=== PATIENT | female | born 1955 | race Caucasian/White ===

== ENCOUNTER → 2020-08-25 13:40 | Outpatient (BNVA) | payer MEDICARE, MEDICAID, SELFPAY | PROVIDERS: Family Provider Nurse Practitioner Family; PCP Nurse Practitioner Family; Referring Provider Family Medicine; Visit Provider Dermatology | DX: L98.9 Disorder of the skin and subcutaneous tissue, unspecified (principal) | CPT/HCPCS: 87220 ==

== ENCOUNTER 2021-02-24 11:02 | Outpatient (CLI) | payer MEDICARE, MEDICAID, SELFPAY ==
--- NOTE | 2021-02-24 11:11 | MM_ITS ---
WS: [id number] Bilateral screening digital mammogram, 02/24/2021 Clinical Data: SCREENING Comparison: None. Findings: There is asymmetric tissue in the upper-outer quadrant of the right breast. The left breast is normal . The breast parenchymal pattern shows fibroglandular tissue. No spiculated masses or clustered calci fications are seen. There are no secondary signs of carcinoma. There are numerous lymph nodes in both axilla. MM/[place] [id number] Impression: 1. Asymmetric tissue in the upper outer quadrant of the right breast and recomm end right breast ultrasound. 2. Negative left breast BIRADS: 0-Incomplete: Need additional imaging evaluation FOLLOW UP: See Report The CAD program checker was used.
== END 2021-02-24 11:03 | disposition home or self-care (01) ==
LOC: RADSHAW 11:09
PROVIDERS: Family Provider Nurse Practitioner Family; PCP Nurse Practitioner Family; Visit Provider Nurse Practitioner Family
DX: Z12.31 Encounter for screening mammogram for malignant neoplasm of breast (principal)
CPT/HCPCS: 77067

== ENCOUNTER 2021-04-09 08:33 | Outpatient (CLI) | payer MEDICARE, MEDICAID, SELFPAY ==
--- NOTE | 2021-04-09 08:45 | MM_ITS ---
WS: [id number] ADDITIONAL VIEWS RIGHT MAMMOGRAM RIGHT BREAST ULTRASOUND HISTORY: RIGHT BREAST MASS COMPARISON: 02/24/2021 RIGHT MAMMOGRAM: Spot compression views and true ML. Spiculated mass present in the upper-outer quadrant posteriorly of the RIGHT breast persists measurin g 11 x 13 mm. No additional suspicious masses. There are a few benign calcifications. Benign lymph no steffany. RIGHT BREAST ULTRASOUND 2-D and color Doppler imaging submitted. Ultrasound directed to the upper outer quadrant of the RIGHT breast. At 10:00, 6 cm from the nipple i s a hypoechoic spiculated mass with shadowing. Mass measures 0.6 x 1.0 x 0.9 cm. Mild peripheral incr eased vascularity. Lymph nodes in the RIGHT axilla are negative. No abnormality noted in the RIGHT br east at 2:00. MM/[place] [id number] IMPRESSION: BI-RADS: 5-Highly Suggestive of Malignancy FOLLOW UP: Biopsy Recommended Notified SAMANTHA Bernard-Geremias at 04/09/2021 9:57 AM. Nurse practitioner is not available. Report discussed with Lisa for follow-up.
== END 2021-04-09 08:34 | disposition home or self-care (01) ==
LOC: RADSHAW 08:36
PROVIDERS: PCP Nurse Practitioner Family; Visit Provider Nurse Practitioner Family
DX: R92.8 Other abnormal and inconclusive findings on diagnostic imaging of breast (principal); N63.11 Unspecified lump in the right breast, upper outer quadrant
CPT/HCPCS: 76642; 77065

== ENCOUNTER 2021-04-20 08:12 | Outpatient (CLI) | payer MEDICARE, MEDICAID, SELFPAY ==
--- NOTE | 2021-04-20 08:24 | US_ITS ---
WS: [id number] ULTRASOUND-GUIDED RIGHT BREAST BIOPSY CLINICAL INFORMATION: LUMP IN R BREAST COMPARISON: None. FINDINGS: The procedure including risks, benefits, and complications were discussed with the patient who agreed to proceed. Using sterile technique patient was prepped and draped in the usual sterile fashion. Aft er 1% lidocaine utilizing real-time ultrasound guidance 5 14-gauge cores were obtained of the right b reast lesion at the 10 o'clock position. Subsequently a titanium clip was placed in the biopsy cavity . No immediate complications. PATHOLOGY DEMONSTRATES A. Breast, right, 10 o'clock , biopsy: -Invasive ductal carcinoma. -Calhoun Talavera grade 2 (score 6). -Ancillary studies have been performed. US/[place] [id number] IMPRESSION: 1. Uncomplicated ultrasound-guided right breast biopsy. 2. The pathology demonstrates invasive ductal carcinoma. 3. Breast cancer prognostic profile pending. BI-RADS: 6-Known Biopsy-Proven Malignancy FOLLOW UP: Surgical Biopsy Recommended RECOMMEND BREAST SURGERY CONSULTATION FOR SURGICAL RESECTION.
[2021-04-27 09:36] LABS: Miscellaneous Test See Scanned Lab Rpt
== END 2021-04-20 08:13 | disposition home or self-care (01) ==
LOC: RAD 08:15
PROVIDERS: PCP Nurse Practitioner Family; Visit Provider Registered Nurse
DX: N63.11 Unspecified lump in the right breast, upper outer quadrant (principal); C50.411 Malignant neoplasm of upper-outer quadrant of right female breast
CPT/HCPCS: 19083; 88305; 88361; 88367; 88374

== ENCOUNTER 2021-07-12 07:42 | Outpatient (CLI) | payer MEDICARE, MEDICAID, SELFPAY ==
--- NOTE | 2021-07-12 12:53 | ONC CON_ITS ---
Dr. Cruz New Patient Note Patient: Karlene Gay Unit #: [id number]: 1955 Dicatated By: Jerel Cruz M.D.Date of Visit: Jul 12, 2021 Onc MED New Patient/Consult Referring Physician: Dr. SHANELL DENNIS M.D. History of Present Illness: Ms. Karlene Gay, is a 65-year-old female who underwent routine mammogram in February 2021 which showed right upper breast abnormality,, confirmed with ultrasound and on April 20, 2021, she underwent ultrasound-guided right breast biopsy which confirmed invasive ductal carcinoma, at that point, patient decided to go to [facility] for further management where she underwent right partial mastectomy with sentinel lymph node biopsy on June 24, 2021 which confirmed invasive ductal carcinoma size about 10 mm, grade 2/3 with clear surgical margins and 1 out of 2 sentinel lymph nodes shows metastatic disease, T1b, N1a, MX. ER [place] positive HER-2/darvin negative. Patient tolerated procedure well and now healing well. She has history of heavy smoking, 1 to 2 pack/day since age 41, history of alcohol abuse but now socially. She also has history of diabetes, hypertension and coronary artery disease Past Medical History: Ms. Gay's medical history consists of history of bcc of face, hypertension, hypothyroidism, type II diabetes, and myocardial infarction in 2002. Past Surgical History: Ms. Gay's surgical/procedural history consists of breast biopsy, excision of basal cell skin cancer from face, hysterectomy, right knee surgery, covid vaccine #1 in 2020, and covid vaccine #2 in 2020. Medications: CeleXA 1 Tablet (of 20 mg) Oral daily, Cholecalciferol 1 Tablet (of 1.25 mg ) Capsule Oral daily on M,F, Clopidogrel Bisulfate 1 Tablet (of 75 mg) Oral daily, Furosemide 1 Tablet (of 40 mg) Oral daily, Ipratropium-Albuterol 1 Vial(s) (of 0.5-2.5 (3) mg/3mL) Solution Inhalation q 4 to 6 hours PRN, Isosorbide Mononitrate ER 1 Tablet (of 30 mg) Tablet SR 24 HR Oral daily, Januvia 1 Tablet (of 100 mg) Oral daily, Levo-T 1 Tablet (of 150 mcg) Oral daily, Losartan Potassium 1 Tablet (of 50 mg) Oral b.i.d., Metoprolol Tartrate 1 Tablet (of 100 mg) Oral t.i.d., Potassium Chloride ER 2 Capsule (of 10 meq) Capsule, controlled release Oral daily, tiZANidine HCl 1 Tablet (of 4 mg) Oral t.i.d., traZODone HCl 1 Tablet (of 50 mg) Oral daily, Voltaren Gel (jelly) Topical PRN Allergies: Codeine Sulfate Social History: Ms. Gay is . Ms. Gay no longer smokes but had smoked 2.0 packs/day for 20 years. She is an active drinker. Drinks wine or beer occasionally. Family History: Ms. Gay's mother at age 72. Ms. Gay's father at age 45. Ms. Gay has 2 sisters: 2 alive. She has 1 son who is : myocardial infarction. Review Of Symptoms: Review of Systems is not available for this patient. Vital Signs: Performed on Jul 12, 2021 09:44: 5, 8, 46.86 (HIGH), 1.96 sq.m, 59 in, 99 %, 58 /min (LOW), 18 /min, 130/78 mm(hg), 97.1 F (LOW), and 232 lbs (HIGH). Performance Status: 0 - Fully active, able to carry on all predisease activities without restrictions. (ECOG) Physical Examination: ENMT - No mouth sores, no thrush, no jaundice, Respiratory - Lungs are clear to auscultation, Cardiovascular - Regular rate and rhythm of heart, Abdomen - Soft, bowel sounds present, Extremities - No visible edema. Lab/Imaging: Most recent lab results are not available for this patient. Impression: [Pathological stage IA (grade 2, ER/[place] positive HER-2/darvin negative) ^T1b, N1a, MX per partial right mastectomy and sentinel lymph node biopsy done on June 24, 2021 ER/[place] positive HER-2/darvin negative also negative for BRCA1 and BRCA2 Hypertension Diabetes Coronary artery disease Smoking Plan: Discussed with patient regarding her disease status and treatment options, patient has subcentimeter right breast primary with 1 out of 2 positive sentinel lymph node, ER/[place] positive HER-2/darvin negative disease, at this point we will consider Oncotype DX test if it shows low risk, she will be offered adjuvant therapy with Arimidex 1 mg p.o. daily along with vitamin D and calcium on the other hand if it shows high risk score, will discuss about adjuvant chemotherapy followed by hormonal therapy for 5 years As, patient has undergone conservative breast surgery, we will also refer her to post lumpectomy radiation therapy We will request for Oncotype DX testing, in the meantime we will start her on Arimidex 1 mg p.o. daily for 5 years along with vitamin D and calcium supplement, if Oncotype DX score shows low risk, will continue hormone therapy for total 5 years and refer her to radiation oncology for evaluation on the other hand if it shows high risk, will discuss with patient regarding adjuvant chemotherapy, patient agrees, will hold Arimidex and treated with adjuvant chemotherapy and restart Arimidex after the conclusion of chemotherapy. All the side effect possible benefits associated with Arimidex including but not limited to hot flashes, generalized weakness and fatigue, osteoporosis, musculoskeletal discomfort, and further teaching will be done by chemotherapy nurse. Signed By: Jerel Cruz M.D. <<Signature on File>>
== END 2021-07-12 07:43 | disposition home or self-care (01) ==
LOC: ONCMED 07:47
PROVIDERS: PCP Nurse Practitioner Family; Visit Provider Internal Medicine Hematology & Oncology
DX: C50.811 Malignant neoplasm of overlapping sites of right female breast (principal); Z17.0 Estrogen receptor positive status [ER+]; Z90.11 Acquired absence of right breast and nipple; I10 Essential (primary) hypertension; E11.59 Type 2 diabetes mellitus with other circulatory complications; I25.10 Atherosclerotic heart disease of native coronary artery without angina pectoris; F17.210 Nicotine dependence, cigarettes, uncomplicated; Z79.811 Long term (current) use of aromatase inhibitors; Z92.21 Personal history of antineoplastic chemotherapy
CPT/HCPCS: 99204

== ENCOUNTER 2021-08-25 13:37 | Outpatient (CLI) | payer MEDICARE, MEDICAID, SELFPAY ==
[2021-08-25 14:05] LABS: Basophils # 0.1 10^3/uL (0.0-0.1); Basophils % 0.6 %; Eosinophils # 0.3 10^3/uL (0.0-0.8); Eosinophils % 2.6 %; Hematocrit 46.5 % (37.0-47.0); Lymphocytes # 3.6 10^3/uL (0.8-4.8); Lymphocytes % 29.4 %; Mean Corpuscular HGB Conc 32.3 g/dL (30.0-36.0); Mean Corpuscular Hemoglobin 29.2 pg (28.0-34.0); Mean Corpuscular Volume 90.6 fl (81-99); Mean Platelet Volume 11.6 fL (7.4-10.4); Monocytes # 0.8 10^3/uL (0.2-0.9); Monocytes % 6.6 %; Neutrophils # 7.25 10^3/uL (1.8-7.7); Nucleated Red Blood Cells % 0 %; Platelet Count 313 10^3/cmm (130-400); Red Blood Count 5.13 10^6/uL (4.1-5.3); Red Cell Distribution Width 14.6 % (12.1-15.1); White Blood Count 12.1 10^3/uL (4.0-10.0)
[2021-08-25 14:23] LABS: Alanine Aminotransferase 17 U/L (0-33); Albumin Level 4.3 g/dL (3.5-5.2); Alkaline Phosphatase 115 IU/L (35-105); Blood Urea Nitrogen 24 mg/dL (8-23); Calcium 10.2 mg/dL (8.5-10.5); Carbon Dioxide 26 mmol/L (22-29); Chloride 97 mmol/L (98-107); Glomerular Filtration Rate 55.8 mL/min (90-130); Glucose 126 mg/dL (65-115); Osmolality Calculated 286 mOsm/kg (285-295); Sodium 135 mmol/L (136-145); Total Bilirubin 0.3 mg/dL (0.15-1.2); Total Protein 7.3 g/dL (6.6-8.7)
[2021-08-25 14:34] LABS: Anion Gap 16.6 (5-19); Aspartate Amino Transferase 16 U/L (0-32); Potassium 4.6 mmol/L (3.5-5.1)
== END 2021-08-25 13:38 | disposition home or self-care (01) ==
PROVIDERS: PCP Nurse Practitioner Family; Visit Provider Internal Medicine Hematology & Oncology
DX: C50.811 Malignant neoplasm of overlapping sites of right female breast (principal); Z17.0 Estrogen receptor positive status [ER+]
CPT/HCPCS: 36415; 80053; 85025

== ENCOUNTER 2021-10-08 08:19 | Outpatient (CLI) | payer MEDICARE, MEDICAID, SELFPAY ==
[2021-10-08 08:52] LABS: Basophils # 0.1 10^3/uL (0.0-0.1); Basophils % 0.8 %; Eosinophils # 0.2 10^3/uL (0.0-0.8); Eosinophils % 2.6 %; Hematocrit 45.1 % (37.0-47.0); Hemoglobin 14.6 g/dL (11.5-15.3); Lymphocytes # 2.9 10^3/uL (0.8-4.8); Mean Corpuscular HGB Conc 32.4 g/dL (30.0-36.0); Mean Corpuscular Hemoglobin 29.7 pg (28.0-34.0); Mean Corpuscular Volume 91.9 fl (81-99); Mean Platelet Volume 11.3 fL (7.4-10.4); Monocytes # 0.6 10^3/uL (0.2-0.9); Monocytes % 6.9 %; Neutrophils # 5.43 10^3/uL (1.8-7.7); Neutrophils % 58.3 %; Nucleated Red Blood Cells % 0 %; Platelet Count 278 10^3/cmm (130-400); Red Blood Count 4.91 10^6/uL (4.1-5.3); Red Cell Distribution Width 14.2 % (12.1-15.1); White Blood Count 9.3 10^3/uL (4.0-10.0)
[2021-10-08 09:17] LABS: Alanine Aminotransferase 17 U/L (0-33); Albumin Level 3.9 g/dL (3.5-5.2); Alkaline Phosphatase 99 IU/L (35-105); Aspartate Amino Transferase 19 U/L (0-32); Blood Urea Nitrogen 17 mg/dL (8-23); Calcium 9.6 mg/dL (8.5-10.5); Carbon Dioxide 20 mmol/L (22-29); Chloride 100 mmol/L (98-107); Globulin 2.9 g/dL (1.3-4.6); Glucose 265 mg/dL (65-115); Osmolality Calculated 293 mOsm/kg (285-295); Sodium 136 mmol/L (136-145); Total Bilirubin 0.3 mg/dL (0.15-1.2); Total Protein 6.8 g/dL (6.6-8.7)
== END 2021-10-08 08:20 | disposition home or self-care (01) ==
LOC: ONCMED 08:20
PROVIDERS: PCP Nurse Practitioner Family; Visit Provider Internal Medicine Hematology & Oncology
DX: C50.811 Malignant neoplasm of overlapping sites of right female breast (principal); Z90.11 Acquired absence of right breast and nipple; F17.210 Nicotine dependence, cigarettes, uncomplicated; Z79.899 Other long term (current) drug therapy
CPT/HCPCS: 36415; 80053; 85025

== ENCOUNTER 2021-10-11 06:30 | Outpatient (CLI) | payer MEDICARE, MEDICAID, SELFPAY ==
--- NOTE | 2021-10-12 13:11 | ONC FU_ITS ---
Dr. Cruz follow up note Patient: Karlene Gay Unit #: [id number]: 1955 Dicatated By: Jerel Cruz M.D.Date of Visit:Oct 11, 2021 Onc Med Follow-up/Prog Note History of Present Illness: Ms. Karlene Gay, is a 65-year-old female who underwent routine mammogram in February 2021 which showed right upper breast abnormality,, confirmed with ultrasound and on April 20, 2021, she underwent ultrasound-guided right breast biopsy which confirmed invasive ductal carcinoma, at that point, patient decided to go to [facility] for further management where she underwent right partial mastectomy with sentinel lymph node biopsy on June 24, 2021 which confirmed invasive ductal carcinoma size about 10 mm, grade 2/3 with clear surgical margins and 1 out of 2 sentinel lymph nodes shows metastatic disease, T1b, N1a, MX. ER [place] positive HER-2/darvin negative. Patient tolerated procedure well and now healing well. Oncotype DX score checked on July 13, 2021 shows recurrence score 7, risk of distant recurrence of disease at 9 years with aromatase inhibitor is about 11% and there is no apparent benefit from chemotherapy. Patient was started on Arimidex 1 mg p.o. daily along with vitamin D/calcium for 5 years on July 12, 2021 She has history of heavy smoking, 1 to 2 pack/day since age 41, history of alcohol abuse but now socially. She also has history of diabetes, hypertension and coronary artery disease Came for follow-up, denies any complaints, no fever chills, no nausea or vomiting, no diarrhea constipation, no melena or hematochezia, no hot flashes, no bony pains, no muscle or joint discomfort, tolerating Arimidex 1 mg p.o. daily along with vitamin D and calcium well Medications: CeleXA 1 Tablet (of 20 mg) Oral daily, Cholecalciferol 1 Tablet (of 1.25 mg ) Capsule Oral daily on ,, Clopidogrel Bisulfate 1 Tablet (of 75 mg) Oral daily, Furosemide 1 Tablet (of 40 mg) Oral daily, Ipratropium-Albuterol 1 Vial(s) (of 0.5-2.5 (3) mg/3mL) Solution Inhalation q 4 to 6 hours PRN, Isosorbide Mononitrate ER 1 Tablet (of 30 mg) Tablet SR 24 HR Oral daily, Januvia 1 Tablet (of 100 mg) Oral daily, Levo-T 1 Tablet (of 150 mcg) Oral daily, Losartan Potassium 1 Tablet (of 50 mg) Oral b.i.d., Metoprolol Tartrate 1 Tablet (of 100 mg) Oral t.i.d., Potassium Chloride ER 2 Capsule (of 10 meq) Capsule, controlled release Oral daily, tiZANidine HCl 1 Tablet (of 4 mg) Oral t.i.d., traZODone HCl 1 Tablet (of 50 mg) Oral daily, Voltaren Gel (jelly) Topical PRN Allergies: Codeine Sulfate Review of Systems: Review of Systems is not available for this patient. Vital Signs: Performed on Oct 11, 2021 08:57 Height - 59.00 in Weight - 231.6 lbs (LOW) BSA - 1.96 sq.m BMI - 46.78 (HIGH) Temperature - 98.0 F (LOW) Pulse - 75 /min Respiration - 18 /min BP - 123/76 mm(hg) O2 Sat - 97 % Pain - 6 Fatigue - 6 Performance Status: 0 - Fully active, able to carry on all predisease activities without restrictions. (ECOG) Physical Examination: Respiratory - Lungs are clear to auscultation, Cardiovascular - Regular rate and rhythm of heart, Gastrointestinal - Soft, bowel sounds present, Extremities - No visible edema. Lab/Imaging: Most recent lab results are not available for this patient. Impression: T1b, N1a, MX per partial right mastectomy and sentinel lymph node biopsy done on June 24, 2021 ER/[place] positive HER-2/darvin negative also negative for BRCA1 and BRCA2 Oncotype DX score 7, started on Arimidex 1 mg p.o. daily along with vitamin D and calcium for 5 years on July 12, 2021 Hypertension Diabetes Coronary artery disease Smoking Plan: Discussed with patient regarding her labs white blood count 9.3 hemoglobin 14.6 hematocrit 45.1 platelets 278,000 CMP within normal limits Oncotype DX, low score at 7 risk of distant recurrence of disease at 9 years but 11% with aromatase inhibitor/tamoxifen and no benefit from chemotherapy Clinically, patient is doing well with no new signs symptoms just of recurrence of disease, tolerating Arimidex 1 mg p.o. daily along with vitamin D and calcium her Oncotype DX score came back low, means no benefit from chemotherapy so we will continue with Arimidex 1 mg p.o. daily along with vitamin D and calcium and last time patient was referred to radiation oncology, patient said she has some issues with transportation she lives in [facility] but her caregiver said she can bring her for daily radiation so we will refer her to radiation oncology again for postlumpectomy radiation therapy and then we will see her back in 3 months for follow-up Signed By: Jerel Cruz M.D. <<Signature on File>>
== END 2021-10-11 06:31 | disposition home or self-care (01) ==
LOC: ONCMED 06:30
PROVIDERS: PCP Nurse Practitioner Family; Visit Provider Internal Medicine Hematology & Oncology
DX: C50.811 Malignant neoplasm of overlapping sites of right female breast (principal); E11.9 Type 2 diabetes mellitus without complications; I10 Essential (primary) hypertension; I25.10 Atherosclerotic heart disease of native coronary artery without angina pectoris; F17.210 Nicotine dependence, cigarettes, uncomplicated; Z79.899 Other long term (current) drug therapy
CPT/HCPCS: 99214

== ENCOUNTER 2021-10-25 13:05 | Outpatient (CLI) | payer MEDICARE, MEDICAID, SELFPAY ==
--- NOTE | 2021-10-25 13:54 | N.ONRAD NP_ITS ---
Radiation Oncology Consultation Patient Name: Karlene Gay Date of : 1955 Date of Service: 10/25/2021 Attending Physician: Mason Jackson M.D. Karlene Gay was seen in consultation this afternoon at the request of John Cruz M.D. for consideration of adjuvant breast radiotherapy for the management of a an early stage breast cancer. A screening mammogram (independently visualized in [facility]) ordered on February 24, 2021 identified an asymmetry in the outer quadrant of the right breast. A right diagnostic mammogram obtained on April 09, 2021 demonstrated 1.1 cm x 1.3 cm spiculated mass corresponding to the screening mammogram abnormality. Ultrasonography confirmed a hypoechoic lesion at the 10 o'clock position that was 6 cm from the nipple measuring 0.6 cm x 1 cm x 0.9 cm. An ultrasound-guided core biopsy completed on April 20, 2021 diagnosed a grade 2, invasive ductal carcinoma. She was referred to [facility] in [place], [place]. An MRI of the breasts completed on June 18, 2021 revealed a 2.4 cm x 1.4 cm x 2.7 cm heterogeneously enhancing mass in the upper outer quadrant of the right breast correlating to the biopsy-proven malignancy. No abnormally enlarged lymph nodes were reported and there were no suspicious findings in the left breast. A needle localized right partial mastectomy sentinel lymph node biopsy performed on June 24, 2021 by Sue Parada M.D. The pathology report (obtained from the outside hospital and personally reviewed in [facility]) diagnosed a grade 2, of ductal carcinoma measuring 1 cm without ductal carcinoma in situ present. All surgical margins were uninvolved by invasive carcinoma (the closest margin was anterior - 4 mm). A total of 2 sentinel lymph nodes were harvested with one lymph node harboring macrometastatic disease (3 mm). There was no extranodal extension identified. Breast biomarker results positive for estrogen receptor and progesterone receptor but negative for HER-2 (by IHC). The Oncotype DX breast recurrence score was 7 indicating no apparent benefit to chemotherapy. She was evaluated today for adjuvant breast radiotherapy. I discussed the [place] [employer] on Cancer Staging and specifically the patient's pathologic stage IB (T1bN1a) breast cancer, I also reviewed the National Comprehensive Cancer Network Guidelines endorsing adjuvant radiotherapy and I summarized the classic study by the NSABP comparing mastectomy, lumpectomy, and lumpectomy with radiotherapy in addition to the Early Breast Cancer Trialist Collaborative Group meta-analysis that established this treatment standard. She is aware that the addition of radiotherapy to lumpectomy provides improvement in local control and overall survival. Inexplicably, the referral for adjuvant radiotherapy was not processed and a significant deferment for treatment recommendations has occurred. The potential toxicities of adjuvant breast radiotherapy were recounted. The patient has verbalized understanding. She would like to discuss the possible treatment with her surgeon prior to making a final decision. The patient's medical treatment was discussed with John Cruz M.D Signed by: Dr. Mason Jackson 10/25/2021 1:54:17 PM
== END 2021-10-25 13:06 | disposition home or self-care (01) ==
LOC: ONCMED 13:11
PROVIDERS: PCP Nurse Practitioner Family; Visit Provider Radiology Radiation Oncology
DX: C50.411 Malignant neoplasm of upper-outer quadrant of right female breast (principal); Z17.1 Estrogen receptor negative status [ER-]
CPT/HCPCS: 99205

== ENCOUNTER 2022-01-10 13:35 | Outpatient (CLI) | payer MEDICARE, MEDICAID, SELFPAY ==
[2022-01-10 14:42] LABS: Basophils # 0.1 10^3/uL (0.0-0.1); Basophils % 0.6 %; Eosinophils # 0.3 10^3/uL (0.0-0.8); Eosinophils % 2.6 %; Hematocrit 41.6 % (37.0-47.0); Hemoglobin 13.4 g/dL (11.5-15.3); Lymphocytes # 2.5 10^3/uL (0.8-4.8); Lymphocytes % 21.8 %; Mean Corpuscular HGB Conc 32.2 g/dL (30.0-36.0); Mean Corpuscular Hemoglobin 30.1 pg (28.0-34.0); Mean Corpuscular Volume 93.5 fl (81-99); Mean Platelet Volume 11.5 fL (7.4-10.4); Monocytes # 0.7 10^3/uL (0.2-0.9); Monocytes % 6.1 %; Neutrophils # 7.81 10^3/uL (1.8-7.7); Neutrophils % 68.5 %; Nucleated Red Blood Cells % 0 %; Platelet Count 258 10^3/cmm (130-400); Red Blood Count 4.45 10^6/uL (4.1-5.3); Red Cell Distribution Width 13.7 % (12.1-15.1); White Blood Count 11.4 10^3/uL (4.0-10.0)
[2022-01-10 15:09] LABS: Alanine Aminotransferase 13 U/L (0-33); Alkaline Phosphatase 104 IU/L (35-105); Aspartate Amino Transferase 14 U/L (0-32); Blood Urea Nitrogen 21 mg/dL (8-23); Calcium 9.6 mg/dL (8.5-10.5); Carbon Dioxide 24 mmol/L (22-29); Chloride 99 mmol/L (98-107); Glomerular Filtration Rate 55.6 mL/min (90-130); Glucose 312 mg/dL (65-115); Osmolality Calculated 295 mOsm/kg (285-295); Sodium 135 mmol/L (136-145); Total Bilirubin 0.7 mg/dL (0.15-1.2)
--- NOTE | 2022-01-10 16:27 | ONC FU_ITS ---
Dee Dee Daniel Progress Note Patient: Karlene Gay Unit #: [id number]: 1955 Dicatated By: Dee Dee Daniel N.P.Date of Visit:Jan 10, 2022 Onc MED Follow-up/Prog Note Chief Complaint: Right breast cancer History of Present Illness: Ms. Karlene Gay, is a 65-year-old female who underwent routine mammogram in February 2021 which showed right upper breast abnormality,, confirmed with ultrasound and on April 20, 2021, she underwent ultrasound-guided right breast biopsy which confirmed invasive ductal carcinoma, at that point, patient decided to go to [facility] for further management where she underwent right partial mastectomy with sentinel lymph node biopsy on June 24, 2021 which confirmed invasive ductal carcinoma size about 10 mm, grade 2/3 with clear surgical margins and 1 out of 2 sentinel lymph nodes shows metastatic disease, T1b, N1a, MX. ER [place] positive HER-2/darvin negative. Patient tolerated procedure well and now healing well. Oncotype DX score checked on July 13, 2021 shows recurrence score 7, risk of distant recurrence of disease at 9 years with aromatase inhibitor is about 11% and there is no apparent benefit from chemotherapy. Patient was started on Arimidex 1 mg p.o. daily along with vitamin D/calcium for 5 years on July 12, 2021 She has history of heavy smoking, 1 to 2 pack/day since age 41, history of alcohol abuse but now socially. She also has history of diabetes, hypertension and coronary artery disease Patient presents today for follow-up. She states that she has not been feeling well lately she has increased fatigue and been having body aches especially in her back, legs, and arms. It started approximately 1 week ago. She denies fever, chills, night sweats. She has sinus drainage that comes and goes. She has a cough that is chronic and related to her smoking. She had some diarrhea last week but that is now resolved. But she needs to have a low back pain. No headaches or dizziness no numbness or tingling. She is currently taking Arimidex 1 mg p.o. daily and tolerating it well. Review Of Symptoms:See above. Past Medical History: History of bcc of face Hypertension Hypothyroidism Type II diabetes Myocardial infarction in 2002 Past Surgical History: Breast biopsy Excision of basal cell skin cancer from face Hysterectomy Right knee surgery Covid vaccine #1 in 2020 Covid vaccine #2 in 2020 Allergies: Codeine Sulfate Medications: CeleXA 1 Tablet (of 20 mg) Oral daily Cholecalciferol 1 Tablet (of 1.25 mg ) Capsule Oral daily on , Clopidogrel Bisulfate 1 Tablet (of 75 mg) Oral daily Furosemide 1 Tablet (of 40 mg) Oral daily Ipratropium-Albuterol 1 Vial(s) (of 0.5-2.5 (3) mg/3mL) Solution Inhalation q 4 to 6 hours PRN Isosorbide Mononitrate ER 1 Tablet (of 30 mg) Tablet SR 24 HR Oral daily Januvia 1 Tablet (of 100 mg) Oral daily Levo-T 1 Tablet (of 150 mcg) Oral daily Losartan Potassium 1 Tablet (of 50 mg) Oral b.i.d. Metoprolol Tartrate 1 Tablet (of 100 mg) Oral t.i.d. Potassium Chloride ER 2 Capsule (of 10 meq) Capsule, controlled release Oral daily tiZANidine HCl 1 Tablet (of 4 mg) Oral t.i.d. traZODone HCl 1 Tablet (of 50 mg) Oral daily Voltaren Gel (jelly) Topical PRN Family History: Ms. Gay's mother at age 72. Ms. Gay's father at age 45. Ms. Gay has 2 sisters: 2 alive. She has 1 son who is : myocardial infarction. Social History: Ms. Gay is . She is a daily smoker who has smoked 2.0 packs/day for 20 years. She is an active drinker. Drinks wine or beer occasionally. Physical Examination: Performed on Jan 10, 2022 13:51: Height - 59.00 in, Weight - 236.4 lbs (HIGH), BSA - 1.98 sq.m, BMI - 47.75 (HIGH), Temperature - 98.7 F, Pulse - 83 /min, Respiration - 18 /min, BP - 106/64 mm(hg), O2 Sat - 95 % (LOW), Pain - 10, and Fatigue - 10. Performance Status: 0 - Fully active, able to carry on all predisease activities without restrictions. (ECOG) Constitutional Alert, cooperative, oriented. Mood and affect appropriate. Appears close to chronological age. Well nourished. Well developed. Head Normocephalic; no scars. Eyes Conjunctivae and sclerae are clear and without icterus. Pupils are reactive and equal. Respiratory Lungs are clear to auscultation without rhonchi or wheezing. Cardiovascular Regular rate and rhythm of heart without murmurs, gallops or rubs. Abdomen Non-tender, non-distended, no masses, ascites or hepatosplenomegaly. Good bowel sounds. No guarding or rebound tenderness. Extremities see above Musculoskeletal No tenderness or swelling, normal range of motion without obvious weakness. Psychiatric Alert and oriented times three. Coherent speech. Verbalizes understanding of our discussions today. Laboratory: Test performed on Jan 10, 2022 14:25 Sodium 135 mmol/L Potassium 5.0 mmol/L Chloride 99 mmol/L CO2 24 mmol/L Anion Gap 17.0 BUN 21 mg/dL Creatinine 1.0 mg/dL Cr Clearance (Est) 94.9400 mL/min eGFR 55.6 mL/min Glucose 312 mg/dL Osmolality - Calculated 295 mOsm/kg Calcium 9.6 mg/dL Protein, Total 7.0 g/dL Albumin 4.0 g/dL Globulin 3.0 g/dL Bilirubin, Total 0.7 mg/dL ALT (SGPT) 13 U/L AST (SGOT) 14 U/L Alkaline Phosphatase 104 IU/L WBC 11.4 10 3/uL RBC 4.45 10 6/uL HGB 13.4 g/dL HCT 41.6 % MCV 93.5 fl MCH 30.1 pg MCHC 32.2 g/dL RDW 13.7 % Platelet Count 258 10 3/cmm MPV 11.5 fL Neutrophils 7.81 10 3/uL Lymphocytes 2.5 10 3/uL Monocytes 0.7 10 3/uL Eosinophils 0.3 10 3/uL Basophils 0.1 10 3/uL Neutrophil % 68.5 % Lymphocyte % 21.8 % Monocyte % 6.1 % Eosinophil % 2.6 % Basophils % 0.6 % NRBC % 0 % Impression: T1b, N1a, MX per partial right mastectomy and sentinel lymph node biopsy done on June 24, 2021 ER/[place] positive HER-2/darvin negative also negative for BRCA1 and BRCA2 Oncotype DX score 7, started on Arimidex 1 mg p.o. daily along with vitamin D and calcium for 5 years on July 12, 2021 Hypertension Diabetes Coronary artery disease Smoking Plan: Labs were not drawn prior to this visit so they have been ordered to be drawn today. Patient is showing no signs or symptoms of disease progression. She is having chronic back pain it was offered to her to further evaluate with x-rays or scans. Patient declines at this time. We will continue Arimidex 1 mg p.o. daily with calcium plus vitamin D. She will return to the clinic in 3 months with CBC, CMP and a follow-up mammogram. Signed By: Dee Dee Daniel NDiana. <<Signature on File>>
== END 2022-01-10 13:36 | disposition home or self-care (01) ==
PROVIDERS: Nurse Practitioner Family; PCP Nurse Practitioner Family; Visit Provider Internal Medicine Hematology & Oncology
DX: C50.811 Malignant neoplasm of overlapping sites of right female breast (principal); E11.9 Type 2 diabetes mellitus without complications; I10 Essential (primary) hypertension; I25.10 Atherosclerotic heart disease of native coronary artery without angina pectoris; E03.9 Hypothyroidism, unspecified; I25.2 Old myocardial infarction; F17.210 Nicotine dependence, cigarettes, uncomplicated; Z79.899 Other long term (current) drug therapy; Z90.11 Acquired absence of right breast and nipple
CPT/HCPCS: 36415; 80053; 85025; 99214

== ENCOUNTER 2022-04-11 14:14 | Outpatient (CLI) | payer MEDICARE, MEDICAID, SELFPAY ==
--- NOTE | 2022-04-11 14:24 | MM_ITS ---
WS: [id number] BILATERAL 3D TOMOSYNTHESIS DIGITAL DIAGNOSTIC MAMMOGRAPHY WITH CAD CLINICAL INFORMATION: HX OF BREAST CA HISTORY: LEFT breast pain. Prior RIGHT lumpectomy. COMPARISON: February 24, 2021 TECHNIQUE: Bilateral CC, MLO, and ML views. FINDINGS: Scattered fibroglandular densities bilaterally. A few incidental punctate calcifications. RIGHT lumpe ctomy with parenchymal fibrosis upper outer RIGHT breast. Vascular calcification. No suspicious focal mass, asymmetry, calcifications, or architectural distortion. No evidence of emelia gnancy. MM/[place] [id number] IMPRESSION: BI-RADS: 2-Benign FOLLOW UP: 1 Year Follow-up Recommend return to annual diagnostic mammography.
== END 2022-04-11 14:15 | disposition home or self-care (01) ==
PROVIDERS: PCP Registered Nurse; Visit Provider Nurse Practitioner Family
DX: Z85.3 Personal history of malignant neoplasm of breast (principal)
CPT/HCPCS: 77062; 77063; 77067

== ENCOUNTER 2022-10-17 12:00 | Outpatient (CLI) | payer MEDICARE, MEDICAID, SELFPAY ==
[2022-10-17 12:21] LABS: Basophils # 0.1 10^3/uL (0.0-0.1); Basophils % 0.5 %; Eosinophils # 0.3 10^3/uL (0.0-0.8); Eosinophils % 3.3 %; Hematocrit 43.4 % (37.0-47.0); Hemoglobin 13.7 g/dL (11.5-15.3); Lymphocytes # 2.6 10^3/uL (0.8-4.8); Lymphocytes % 28.7 %; Mean Corpuscular HGB Conc 31.6 g/dL (30.0-36.0); Mean Corpuscular Hemoglobin 29.8 pg (28.0-34.0); Mean Corpuscular Volume 94.3 fl (81-99); Mean Platelet Volume 11.5 fL (7.4-10.4); Monocytes # 0.6 10^3/uL (0.2-0.9); Neutrophils # 5.55 10^3/uL (1.8-7.7); Neutrophils % 61.1 %; Nucleated Red Blood Cells % 0 %; Platelet Count 218 10^3/cmm (130-400); Red Cell Distribution Width 13.9 % (12.1-15.1); White Blood Count 9.1 10^3/uL (4.0-10.0)
[2022-10-17 12:47] LABS: Alanine Aminotransferase 11 U/L (0-33); Albumin Level 3.7 g/dL (3.5-5.2); Alkaline Phosphatase 123 U/L (35-105); Anion Gap 12.3 (5-19); Aspartate Amino Transferase 14 U/L (0-32); Blood Urea Nitrogen 22 mg/dL (8-23); Calcium 9.7 mg/dL (8.5-10.5); Carbon Dioxide 25 mmol/L (22-29); Chloride 103 mmol/L (98-107); Globulin 3.2 g/dL (1.3-4.6); Glomerular Filtration Rate 83.7 mL/min (90-130); Glucose 190 mg/dL (65-115); Osmolality Calculated 290 mOsm/kg (285-295); Potassium 4.3 mmol/L (3.5-5.1); Sodium 136 mmol/L (136-145); Total Bilirubin 0.7 mg/dL (0.15-1.2); Total Protein 6.9 g/dL (6.6-8.7)
== END 2022-10-17 12:01 | disposition home or self-care (01) ==
LOC: LAB 12:05
PROVIDERS: PCP Registered Nurse; Visit Provider Internal Medicine Hematology & Oncology
DX: C50.411 Malignant neoplasm of upper-outer quadrant of right female breast (principal)
CPT/HCPCS: 36415; 80053; 85025

== ENCOUNTER 2023-01-23 12:29 | Oncology outpatient (recurring) (ONCR) | payer MEDICARE, MEDICAID, SELFPAY ==
[2023-01-23 13:44] LABS: Basophils # 0.1 10^3/uL (0.0-0.1); Basophils % 0.5 %; Eosinophils # 0.3 10^3/uL (0.0-0.8); Hematocrit 42.5 % (37.0-47.0); Hemoglobin 13.6 g/dL (11.5-15.3); Lymphocytes # 3.5 10^3/uL (0.8-4.8); Lymphocytes % 26.2 %; Mean Corpuscular Hemoglobin 28.9 pg (28.0-34.0); Mean Corpuscular Volume 90.4 fl (81-99); Mean Platelet Volume 10.9 fL (7.4-10.4); Monocytes # 0.8 10^3/uL (0.2-0.9); Monocytes % 6.2 %; Neutrophils # 8.65 10^3/uL (1.8-7.7); Neutrophils % 64.4 %; Nucleated Red Blood Cells % 0 %; Platelet Count 280 10^3/cmm (130-400); Red Cell Distribution Width 13.3 % (12.1-15.1); White Blood Count 13.4 10^3/uL (4.0-10.0)
[2023-01-23 14:02] LABS: Alanine Aminotransferase 18 U/L (0-33); Albumin Level 3.9 g/dL (3.5-5.2); Alkaline Phosphatase 106 U/L (35-105); Anion Gap 14.6 (5-19); Aspartate Amino Transferase 17 U/L (0-32); Blood Urea Nitrogen 19 mg/dL (8-23); Calcium 9.8 mg/dL (8.5-10.5); Carbon Dioxide 23 mmol/L (22-29); Chloride 100 mmol/L (98-107); Globulin 3.1 g/dL (1.3-4.6); Glomerular Filtration Rate 71.8 mL/min (90-130); Glucose 136 mg/dL (65-115); Osmolality Calculated 280 mOsm/kg (285-295); Potassium 4.6 mmol/L (3.5-5.1); Sodium 133 mmol/L (136-145); Total Bilirubin 0.9 mg/dL (0.15-1.2)
--- NOTE | 2023-01-23 15:14 | PC.NURSE ---
Pt brought to infusion room from clinic OV to collect UA. Urine collected via clean catch, urine sent to lab. - LINNEA
[2023-01-23 16:18] LABS: Bilirubin Urine Neg (Negative); Blood Urine Neg (Negative); Glucose Urine UA Norm (Normal); Ketones Urine Negative (Negative); Leukocyte Esterase Urine 1+ (Negative); Nitrate Urine Negative (Negative); Protein Urine Trace (Negative); Specific Gravity, Urine 1.015 (1.005-1.030); Urine Appearance Hazy (CLEAR); Urine Color Yellow (Yellow); Urobilinogen Urine Norm (Negative); pH Urine 5 (5-7)
[2023-01-23 18:00] LABS: Add Urine Culture? No; Bacteria Urine 2+ /hpf; RBC Urine 0-4 /hpf (0-2)
== END 2023-02-19 23:59 | disposition home or self-care (01) ==
PROVIDERS: PCP Registered Nurse; Visit Provider Internal Medicine Hematology & Oncology
DX: C50.411 Malignant neoplasm of upper-outer quadrant of right female breast (principal); Z17.0 Estrogen receptor positive status [ER+]; Z91.148 Patient's other noncompliance with medication regimen for other reason; D72.829 Elevated white blood cell count, unspecified; R30.0 Dysuria; Z79.811 Long term (current) use of aromatase inhibitors; Z79.899 Other long term (current) drug therapy
CPT/HCPCS: 36415; 80053; 81001; 85025; 99214

== ENCOUNTER 2023-04-14 09:16 | Outpatient (CLI) | payer MEDICARE, MEDICAID, SELFPAY ==
--- NOTE | 2023-04-14 09:22 | MM_ITS ---
WS: [id number] DIAGNOSTIC BILATERAL DIGITAL BREAST TOMOSYNTHESIS MAMMOGRAPHY WITH CAD HISTORY: History of breast cancer. COMPARISON: 04/11/2022, 05/31/2021 TECHNIQUE: Bilateral craniocaudad, mediolateral oblique, and mediolateral views are submitted with to mosirasema and SHAN. Computer aided detection utilized. Breast composition: There are scattered areas of fibroglandular density. Postlumpectomy site with dis tortion in the upper-outer quadrant of the RIGHT breast. Mild volume loss in the RIGHT breast. Benign calcifications and arterial calcifications. MM/[id number] IMPRESSION: BI-RADS: 2-Benign FOLLOW UP: 1 Year Follow-up
== END 2023-04-14 09:17 | disposition home or self-care (01) ==
PROVIDERS: PCP Registered Nurse; Visit Provider Internal Medicine Hematology & Oncology
DX: Z85.3 Personal history of malignant neoplasm of breast (principal)
CPT/HCPCS: 77062; G0279

== ENCOUNTER 2023-08-24 12:11 | Oncology outpatient (recurring) (ONCR) | payer MEDICARE, MEDICAID, SELFPAY ==
[2023-08-24 13:25] VITALS: BP 149/96; PULSE 89; RESP 18; TEMP 36.6; O2SAT 94
[2023-08-24 13:45] LABS: Basophils # 0.1 10^3/uL (0.0-0.1); Basophils % 0.7 %; Eosinophils # 0.1 10^3/uL (0.0-0.8); Eosinophils % 1.4 %; Lymphocytes # 2.9 10^3/uL (0.8-4.8); Lymphocytes % 29.9 %; Mean Corpuscular Hemoglobin 28.8 pg (27-33); Mean Corpuscular Volume 90.2 fl (85-98); Mean Platelet Volume 11.2 fL (7.4-10.4); Monocytes # 0.7 10^3/uL (0.2-0.9); Monocytes % 7.3 %; Neutrophils # 5.89 10^3/uL (1.8-7.7); Neutrophils % 60.3 %; Nucleated Red Blood Cells % 0 %; Platelet Count 310 10^3/cmm (157-399); Red Cell Distribution Width 13.6 % (12.1-15.1); White Blood Count 9.77 10^3/uL (3.29-11.43)
[2023-08-24 14:03] LABS: Alanine Aminotransferase 13 U/L (0-33); Albumin Level 4.2 g/dL (3.5-5.2); Alkaline Phosphatase 124 U/L (35-105); Aspartate Amino Transferase 15 U/L (0-32); Blood Urea Nitrogen 16 mg/dL (8-23); Calcium 10.2 mg/dL (8.5-10.5); Carbon Dioxide 25 mmol/L (22-29); Chloride 100 mmol/L (98-107); Globulin 3.3 g/dL (1.3-4.6); Glomerular Filtration Rate 62.6 mL/min (90-130); Glucose 126 mg/dL (65-115); Osmolality Calculated 285 mOsm/kg (285-295); Sodium 136 mmol/L (136-145); Total Bilirubin 0.6 mg/dL (0.15-1.2); Total Protein 7.5 g/dL (6.6-8.7)
[2023-08-24 14:07] LABS: Anion Gap 15.6 (5-19); Potassium 4.6 mmol/L (3.5-5.1)
[2023-08-24 19:21] LABS: CA 15-3 9.6 U/mL (0-25)
== END 2023-09-21 23:59 | disposition home or self-care (01) ==
LOC: ONCMED 12:12
PROVIDERS: Internal Medicine Medical Oncology; PCP Registered Nurse; Visit Provider Internal Medicine Hematology & Oncology
DX: C50.411 Malignant neoplasm of upper-outer quadrant of right female breast (principal); Z17.0 Estrogen receptor positive status [ER+]; R74.8 Abnormal levels of other serum enzymes; D72.829 Elevated white blood cell count, unspecified; R30.0 Dysuria; Z79.811 Long term (current) use of aromatase inhibitors; Z79.899 Other long term (current) drug therapy
CPT/HCPCS: 36415; 80053; 85025; 86300; 99214

== ENCOUNTER 2023-09-12 07:31 | Outpatient (CLI) | payer MEDICARE, MEDICAID, SELFPAY ==
--- NOTE | 2023-09-12 09:30 | NM_ITS ---
WS: [id number] NUCLEAR MEDICINE BONE SCAN Radiopharmaceutical: 25.5 Tc-99m MDP mCi IV Injection site: Antecubital Postinjection imaging delay: 1 hr CLINICAL INFORMATION: Rule out bone mets COMPARISON: None. FINDINGS: Bone lesions: Small mount of patchy uptake involve the lower thoracic spine approximately T12 may be degenerative but nonspecific. Recommend 3-month follow-up. Otherwise no suspicious areas of activity to indicate metastatic disease. Soft tissue contours: Normal. Kidneys: Normal. Other findings: Degenerative type uptake both AC joints. RIGHT AMENA. Degenerative uptake LEFT knee and bilateral ankles. Degenerative uptake in the cervical spine. IMPRESSION: 1. Patchy uptake in the lower thoracic spine approximately T12 nonspecific but may be degenerative. Recommend 3-month follow-up bone scan. Alternatively MRI of the thoracic and lumbar spine could be ob tained for additional evaluation if indicated, without and with gadolinium enhancement. 2. Otherwise no areas of increased activity to indicate metastatic disease.
== END 2023-09-12 07:32 | disposition home or self-care (01) ==
PROVIDERS: Visit Provider Internal Medicine Medical Oncology
DX: C50.411 Malignant neoplasm of upper-outer quadrant of right female breast (principal); R74.8 Abnormal levels of other serum enzymes
CPT/HCPCS: 78306; A9561

== ENCOUNTER 2023-09-26 11:44 | Oncology outpatient (recurring) (ONCR) | payer MEDICARE, MEDICAID, SELFPAY | END 2023-10-22 23:59 | disposition home or self-care (01) | PROVIDERS: PCP Registered Nurse; Visit Provider Internal Medicine Hematology & Oncology | DX: C50.411 Malignant neoplasm of upper-outer quadrant of right female breast (principal); Z17.0 Estrogen receptor positive status [ER+]; R74.8 Abnormal levels of other serum enzymes; D72.829 Elevated white blood cell count, unspecified; R30.0 Dysuria; Z79.811 Long term (current) use of aromatase inhibitors; Z79.899 Other long term (current) drug therapy | CPT/HCPCS: 99214 ==

== ENCOUNTER 2023-11-30 11:31 | Outpatient (CLI) | payer MEDICARE, MEDICAID, SELFPAY ==
--- NOTE | 2023-11-30 11:45 | MR_ITS ---
WS: [id number] MRI THORACIC SPINE with and without contrast HISTORY: abnormal bone scan, history of breast cancer. COMPARISON: Bone scan imaging 09/12/2023 TECHNIQUE: Multiplanar sequences are performed in sagittal and axial planes. Post MultiHance 17 mL IV . Quality this study is suboptimal due to motion artifact. Mild straightening and reversal the cervical lordosis centered at C5-6. Mild anterior wedging of C6 a nd C7. Disc spaces are narrowed throughout the thoracic spine. Decreased T1 signal in T8, T9, T10 and T11. There is variable T1 and T2 signal within these vertebral bodies and there are patchy areas of enhancement including the T12 vertebral body suspicious for met astatic involvement. On the axial images there is abnormal soft tissue enhancement surrounding the T1 0 and T11 vertebral bodies. T1-2: Normal. T2-3: Normal. T3-4: Normal. T4-5: Normal. T5-6: Normal. T6-7: Normal. T7-8: Normal. T8-9: Ligamentum flavum and facet arthritis. Mild foraminal stenosis. T9-10: Ligamentum flavum and mild facet arthritis. T10-11: Diffuse annular disc bulging with marked ligamentum flavum and facet arthritis. Mild central and foraminal stenosis. T11-12: Mild ligamentum flavum and facet arthritis. Seen best on the postcontrast axial imaging is an irregular mass with peripheral enhancement in the R IGHT lung measuring 2.1 x 2.2 cm which needs to be further evaluated. IMPRESSION: 1. Abnormal signal with enhancement in T8, T9, T10, T11 and to a lesser extent T12. These findings a re suspicious for metastatic bone disease. This study is compromised by motion artifact. Paravertebra l soft tissue enhancement most significant adjacent to the T10 and T11 vertebral bodies suspicious fo r tumor involvement. 2. RIGHT pulmonary mass measures 2.1 x 2.2 cm. Recommend follow-up chest CT with IV contrast. The th oracic vertebral bodies can also be reevaluated by CT at that time.
[2023-11-30] MEDS: gadobenate dimeglumine 20 mL vial IV (12:23)
== END 2023-11-30 11:32 | disposition home or self-care (01) ==
LOC: RAD 11:31
PROVIDERS: PCP Registered Nurse; Visit Provider Internal Medicine
DX: C50.411 Malignant neoplasm of upper-outer quadrant of right female breast (principal); R94.8 Abnormal results of function studies of other organs and systems
CPT/HCPCS: 72157; A9577

== ENCOUNTER 2023-12-20 10:51 | Oncology outpatient (recurring) (ONCR) | payer MEDICARE, MEDICAID, SELFPAY ==
[2023-12-07 14:21] LABS: Basophils # 0.1 10^3/uL (0.0-0.1); Basophils % 0.6 %; Eosinophils # 0.2 10^3/uL (0.0-0.8); Eosinophils % 2.2 %; Hematocrit 43.8 % (36-47); Lymphocytes # 3.1 10^3/uL (0.8-4.8); Lymphocytes % 32.7 %; Mean Corpuscular Hemoglobin 29.3 pg (27-33); Mean Corpuscular Volume 91.6 fl (85-98); Mean Platelet Volume 10.5 fL (7.4-10.4); Monocytes # 0.7 10^3/uL (0.2-0.9); Monocytes % 7.8 %; Neutrophils # 5.24 10^3/uL (1.8-7.7); Nucleated Red Blood Cells % 0 %; Platelet Count 285 10^3/cmm (157-399); Red Blood Count 4.78 10^6/uL (3.85-5.65); Red Cell Distribution Width 14.6 % (12.1-15.1); White Blood Count 9.37 10^3/uL (3.29-11.43)
[2023-12-07 14:59] LABS: Alanine Aminotransferase 18 U/L (0-33); Albumin Level 3.8 g/dL (3.5-5.2); Alkaline Phosphatase 161 U/L (35-105); Anion Gap 11.5 (5-19); Aspartate Amino Transferase 20 U/L (0-32); Blood Urea Nitrogen 10 mg/dL (8-23); CA 15-3 6.9 U/mL (0-25); Calcium 9.1 mg/dL (8.5-10.5); Carbon Dioxide 26 mmol/L (22-29); Chloride 106 mmol/L (98-107); Globulin 2.8 g/dL (1.3-4.6); Glomerular Filtration Rate 99.7 mL/min (90-130); Glucose 115 mg/dL (65-115); Osmolality Calculated 288 mOsm/kg (285-295); Potassium 4.5 mmol/L (3.5-5.1); Sodium 139 mmol/L (136-145); Thyroid Stimulating Hormone 0.08 uIU/mL (0.27-4.20); Total Bilirubin 0.5 mg/dL (0.15-1.2); Total Protein 6.6 g/dL (6.6-8.7); Vitamin B12 332 pg/mL (232-1245)
--- NOTE | 2023-12-20 12:10 | ONCRAD EPV_ITS ---
Radiation Oncology Established Patient Visit Patient: Karlene Gay [id number] : 1955 Age: 68 Sex: Female Dictated by: Dr. Love Martin Date of Service: 12/20/2023 Referring Physician(s) : Dr. Robbi Villareal Diagnosis: C79.51 Bone metastasis C50.411 - Malignant neoplasm of upper-outer quadrant of right female breast, Diagnosed 07/12/2021 (Active) Stage X, T1a, pN1b, G2, HER2 Neg, ER Pos, MN Neg Ms. Karlene Gay, is a 65-year-old female who underwent routine mammogram in February 2021 which showed right upper breast abnormality,, confirmed with ultrasound and on April 20, 2021, she underwent ultrasound-guided right breast biopsy which confirmed invasive ductal carcinoma, at that point, patient decided to go to [facility] for further management where she underwent right partial mastectomy with sentinel lymph node biopsy on June 24, 2021 which confirmed invasive ductal carcinoma size about 10 mm, grade 2/3 with clear surgical margins and 1 out of 2 sentinel lymph nodes shows metastatic disease, T1b, N1a, MX. ER MN positive HER-2/darvin negative. Patient tolerated procedure well and now healing well. Oncotype DX score checked on July 13, 2021 shows recurrence score 7, risk of distant recurrence of disease at 9 years with aromatase inhibitor is about 11% and there is no apparent benefit from chemotherapy. Patient was started on Arimidex 1 mg p.o. daily along with vitamin D/calcium for 5 years on July 12, 2021 She has history of heavy smoking, 1 to 2 pack/day since age 41, history of alcohol abuse but now socially. She also has history of diabetes, hypertension and coronary artery disease She states that she has not been feeling well lately she has increased fatigue and been having body aches especially in her back, legs, and arms. It started approximately 1 week ago. She denies fever, chills, night sweats. She has sinus drainage that comes and goes. She has a cough that is chronic and related to her smoking. She had some diarrhea last week but that is now resolved. But she needs to have a low back pain. No headaches or dizziness no numbness or tingling. She is currently taking Arimidex 1 mg p.o. daily and tolerating it well. She had undergone a bone scan and was found to have what appeared to be metastatic disease at T12. She then had an MRI of her thoracic spine. This confirmed that there was abnormal signal at T8, T9, T10, T11 and T12. There was a paravertebral soft tissue enhancement adjacent to T10 and T11. She also had been found to have a pulmonary mass that measured 2.1 x 2.2 cm in size. Radiotherapy to Date: None Current History: Patient is here to discuss radiation to the spine for bony metastasis and pain control. She also has described symptoms of both of her arms going completely numb. This is apparently been present for quite some time as she is actually seeing a chiropractor for the symptoms as well. She describes the numbness as being glovelike all the way up her arm. They can become quite tender when her hands also become somewhat swollen. Current Medications: Arimidex, celeXA, cholecalciferol, clopidogrel Bisulfate, furosemide, ipratropium-Albuterol, isosorbide Mononitrate ER, januvia, levo-T, losartan Potassium, metoprolol Tartrate, potassium Chloride ER, tiZANidine HCl, traZODone HCl, voltaren. Allergies: Codeine Sulfate. Current Complaints / Review of Systems: . Hands are tender, right hand is slightly puffy through the pads of her palm. Back pain through the mid thoracic to upper lumbar area. Vital Signs: Performed on 12/20/2023 11:12 AM BMI - 40.961 kg/m2 (high), Height - 59 in, Weight - 202.8 lbs, Temperature - 98 f, Pulse - 76 /min, Respiration - 16 /min, O2 Sat - 98 %, Pain - 7, Fatigue - 3 and BP - 107/ 59 mm(hg)(/low). Physical Exam: General: Patient is in no apparent distress. She is accompanied today by her friend.. HEENT: Normocephalic, atraumatic. Extraocular Movements Intact: Pupils Equal, Round, Reactive to Light: Sclerae anicteric. . Neck did not reveal any palpable adenopathy. There is no supraclavicular adenopathy. No distended veins were noted across her chest. LUNGS: Clear to auscultation bilaterally. HEART: Regular rate and rhythm, MUSCULOSKELETAL: tenderness noted over the mid thoracic spine. ABDOMEN: Soft, nontender, nondistended without masses or organomegaly. EXTREMITIES: No peripheral edema is identified. No upper extremity edema is noted. Her hands have normal color and normal vasculature in terms of her fingernails. Limited motor and sensory examination are grossly intact and symmetric bilaterally. NEUROLOGIC alert and orient x 3. Gait and speech within normal limits Psych: Affect normal for current situation Performance Status: KPS 80 Lab: None pending. Pathology: Primary, c50.411 - malignant neoplasm of upper-outer quadrant of right female breast, Diagnosed 07/12/2021 (active) stage x, t1a, pn1b, g2, her2 neg, er pos, pr neg. Imaging: See HPI Impression: Stage II right-sided breast cancer now with a solitary lung lesion and bony metastasis Plan: I reviewed with Mrs. Gay her current situation. We talked about how she still has lots of imaging that been scheduled. She has a CT on January 01 and a PET scan on January 08. We reviewed how the reason she was here today was she is having significant pain and we can use the radiation to get her pain under control. I did encourage her to keep her other appointments and get her other imaging done so we can better delineate what might be going on in her neck. If there is any malignancy in the neck area in the spine it should show up on her PET scan. I do feel like the symptoms are more related to chronic neck issues than malignancy. We did talk about how at some point depending on the PET scan she may need a biopsy of her lung mass as well. We also reviewed the radiations for bony metastasis. We discussed the simulation process. We reviewed the daily treatment regiment. We discussed the risks and side effects both acute and long-term. At this point she is agreed to proceed and because of her neurological symptoms and the fact that she has [address] here we will go ahead and do her simulation today so that we can begin her treatments shortly thereafter. Down the line once she has had additional evaluation if her lung mass is consistent with malignancy we can always use SBRT for the solitary lung mass barring whether she has additional metastatic disease. Signed by: 12/20/2023 12:08:37 PM <<Signature on File>> Time spent with patient:45 CPT Code: CPT Code:
== END 2023-12-21 23:59 | disposition home or self-care (01) ==
PROVIDERS: Internal Medicine Medical Oncology; PCP Registered Nurse; Visit Provider Internal Medicine Hematology & Oncology
DX: C50.411 Malignant neoplasm of upper-outer quadrant of right female breast (principal); Z17.0 Estrogen receptor positive status [ER+]; R74.8 Abnormal levels of other serum enzymes; D72.829 Elevated white blood cell count, unspecified; R30.0 Dysuria; Z79.811 Long term (current) use of aromatase inhibitors; Z79.899 Other long term (current) drug therapy; Z91.148 Patient's other noncompliance with medication regimen for other reason
CPT/HCPCS: 36415; 77290; 77295; 77300; 77334; 80053; 82607; 84443; 85025; 86300; 99024; 99215

== ENCOUNTER 2024-01-02 13:51 | Outpatient (CLI) | payer MEDICARE, MEDICAID, SELFPAY ==
--- NOTE | 2024-01-02 14:00 | PETR_ITS ---
PROCEDURE INFORMATION: Exam: PET/CT Skull Base to Mid-thigh Exam date and time: 01/02/2024 2:37 PM Age: 68 years old Clinical indication: Condition or disease; Primary cancer: Breast cancer; Additional info: [facility] LABS AND CLINICAL REPORTS: Glucose: 108 mg/dl Treatment strategy for malignancy (PET staging): Initial Staging (PI) TECHNIQUE: Imaging protocol: Following at least four-hour fasting and following the injection of radiopharmaceutical, low dose CT images were obtained. Then, PET images were obtained. Attenuation corrected images were constructed using the CT scan. Fused images of PET and CT were reviewed. The standardized uptake values (SUV) reported below are maximum values within a region of interest, expressed in gm/ml. Exam includes orbital meatal line to mid-thigh. Radiopharmaceutical: 12.67 mCi F-18 FDG (Fluorodeoxyglucose), IV. Time of imaging post radiopharmaceutical administration: 1 hour Injection site: Left antecubital COMPARISON: NM bone scan whole body* [id number] 09/12/2023 9:30 AM FINDINGS: Brain: Visualized brain has normal physiologic uptake. Pharynx: No abnormal uptake. Larynx: No abnormal uptake. Lungs, pleura and trachea: Partially calcified and air-filled nodule in the right lung apex measuring 1.7 cm, with no abnormal radiotracer uptake. Heart: Normal physiologic uptake. Mediastinal space: No abnormal uptake. Liver: No abnormal uptake. Gallbladder and bile ducts: No abnormal uptake. Pancreas: No abnormal uptake. Spleen: No abnormal uptake. Adrenal glands: No abnormal uptake. Kidneys and ureters: Normal physiologic uptake. Stomach and bowel: No abnormal uptake. Vasculature: No abnormal uptake. Lymph nodes: No abnormal uptake. No lymphadenopathy in the head, neck, chest, abdomen, pelvis, and extremities. Bones/joints: No abnormal uptake in the visualized axial and appendicular skeleton. Soft tissues: No abnormal uptake in the visualized head, neck, chest, abdomen, pelvis, and extremities. PET/PET skulltothi INITIAL [id number] IMPRESSION: No abnormal radiotracer uptake.
== END 2024-01-02 13:52 | disposition home or self-care (01) ==
LOC: RAD 13:54
PROVIDERS: PCP Nurse Practitioner Family; Visit Provider Internal Medicine Medical Oncology
DX: C50.411 Malignant neoplasm of upper-outer quadrant of right female breast (principal)
CPT/HCPCS: 78815; A9552

== ENCOUNTER 2024-01-02 15:33 | Outpatient (CLI) | payer MEDICARE, MEDICAID, SELFPAY ==
--- NOTE | 2024-01-02 15:30 | CTR_ITS ---
PROCEDURE INFORMATION: Exam: CT Chest With Contrast; Diagnostic Exam date and time: 01/02/2024 3:56 PM Age: 68 years old Clinical indication: Abnormal findings; Abnormal radiologic exam of lung or chest; Patient HX: HX of breast cancer, lung cancer; Additional info: Lung nodule, breast cancer TECHNIQUE: Imaging protocol: Diagnostic computed tomography of the chest with contrast. Radiation optimization: All CT scans at this facility use at least one of these dose optimization techniques: automated exposure control; mA and/or kV adjustment per patient size (includes targeted exams where dose is matched to clinical indication); or iterative reconstruction. Contrast material: OMNI 350; Contrast volume: 100 ml; Contrast route: INTRAVENOUS (IV); COMPARISON: [facility] [id number] 01/02/2024 2:37 PM RADIATION DOSE METRICS: Total DLP (mGy-cm): 545.31 FINDINGS: Lungs: There is a 2 cm rounded cavitary, partially calcified nodule in the right lung apex posteriorly. Pleural spaces: Unremarkable. No pneumothorax. No pleural effusion. Heart: Unremarkable. No cardiomegaly. No pericardial effusion. Lymph nodes: Unremarkable. No enlarged lymph nodes. Vasculature: Unremarkable. No aortic aneurysm. Bones/joints: Unremarkable. No acute fracture. Soft tissues: Unremarkable. CT/CT chest w con* [id number] IMPRESSION: Cavitary right lung nodule. The nodule has benign features such as calcification. You may wish to obtain a follow-up CT in 6 months to ensure stability.
[2024-01-02] MEDS: iohexol 350 mg/mL 500 mL Btl (per mL) IV (16:06)
== END 2024-01-02 15:34 | disposition home or self-care (01) ==
LOC: RAD 15:33
PROVIDERS: PCP Nurse Practitioner Family; Visit Provider Internal Medicine Medical Oncology
DX: C50.411 Malignant neoplasm of upper-outer quadrant of right female breast (principal); R91.1 Solitary pulmonary nodule
CPT/HCPCS: 71260; 78815; A9552; Q9967

== ENCOUNTER 2024-01-16 15:44 | Oncology outpatient (recurring) (ONCR) | payer MEDICARE, MEDICAID, SELFPAY ==
--- NOTE | 2023-12-26 14:43 | ONCRAD TMN_ITS ---
Radiation Oncology Weekly Treatment Management Patient: Karlene Gay MR#: [id number] : 1955 Attending Physician: Dr. Love Martin Date of Service: 12/26/2023 Fraction: Patient has had 2 out of 10 Referring Physician(s) : Dr. Robbi Villareal Diagnosis: C79.51 - Secondary malignant neoplasm of bone, Diagnosed 12/20/2023 (Active) C50.411 - Malignant neoplasm of upper-outer quadrant of right female breast, Diagnosed 07/12/2021 (Active) Stage X, T1a, pN1b, G2, HER2 Neg, ER Pos, NC Neg Radiotherapy to date: Course: Bone Met 2023, Treatment Site: T Spine Mets, Ref. ID: GTV, Energy: 15X, Dose/Fx (cGy): 300, #Fx: 2 10, Dose Correction (cGy): 0, Total Dose Delivered (cGy): 600, Start Date: 12/25/2023, Elapsed Days: 1 Reason for visit: The patient is being seen today as part of their regularly scheduled weekly on treatment visits to assess for acute toxicities from radiotherapy. Review of Systems: Her pain is controlled today. She did take the hydrocodone yesterday and a muscle relaxer last night Vital Signs: Performed on 12/26/2023 2:31 PM BMI - 40.597 kg/m2 (high), Height - 59 in, Weight - 201 lbs, Temperature - 96.4 f, Pulse - 80 /min, Respiration - 18 /min, O2 Sat - 95 % (low), Pain - 7, Fatigue - 0 and BP - 110/ 70 mm(hg). Physical Exam: Patient is in no apparent distress with normal respiratory rate Imaging: Radiation therapy imaging related to accurate target localization (i.e. KV, MV and CBCT) was reviewed. Appropriate changes, if any, were made to ensure treatment accuracy. Plan: I encouraged her to take her pain medicine as needed I reminded her that it would make her constipated. Will otherwise continue with her treatments as planned Signed by: Dr. Love Martin 12/26/2023 2:42:49 PM
[2023-12-28 15:17] LABS: Add Urine Microscopic? YES; Bacteria Urine TRACE /hpf; Bilirubin Urine Neg (Negative); Blood Urine Neg (Negative); Glucose Urine UA Norm (Normal); Ketones Urine Negative (Negative); Leukocyte Esterase Urine Negative (Negative); Nitrate Urine Negative (Negative); Protein Urine Neg (Negative); Specific Gravity, Urine 1.015 (1.005-1.030); Squamous Epithelial Cell Urine 0-4 /hpf (0-5); Urine Appearance SL Hazy (CLEAR); Urine Color Yellow (Yellow); Urobilinogen Urine Norm (Negative); WBC Urine 0-4 /hpf (0-5); pH Urine 5 (5-7)
[2023-12-28 15:18] LABS: Add Urine Culture? No
--- NOTE | 2024-01-02 14:02 | ONCRAD TMN_ITS ---
Radiation Oncology Weekly Treatment Management Patient: Karlene Gay MR#: [id number] : 1955 Attending Physician: Sid Mar Date of Service: 01/02/2024 Referring Physician(s) : Jerel Cruz Diagnosis: C79.51 - Secondary malignant neoplasm of bone, Diagnosed 12/20/2023 (Active) C50.411 - Malignant neoplasm of upper-outer quadrant of right female breast, Diagnosed 07/12/2021 (Active) Stage X, T1a, pN1b, G2, HER2 Neg, ER Pos, MN Neg Radiotherapy to date: Course: Bone Met 2023, Treatment Site: T Spine Mets, Ref. ID: GTV, Energy: 15X, Dose/Fx (cGy): 300, #Fx: 7 / 10, Dose Correction (cGy): 0, Total Dose Delivered (cGy): 2,100, Start Date: 12/25/2023, Elapsed Days: 8 Reason for visit: The patient is being seen today as part of their regularly scheduled weekly on treatment visits to assess for acute toxicities from radiotherapy. Review of Systems: Patient denies skin irritation, edema, or excessive fatigue. She continues with the use of moisturizers. Vital Signs: Performed on 01/02/2024 1:04 PM BMI - 41.405 kg/m2 (high), Height - 59 in, Weight - 205 lbs, Temperature - 96.6 f, Pulse - 83 /min, Respiration - 18 /min, O2 Sat - 97 %, Pain - 8, Fatigue - 0 and BP - 147/ 92 mm(hg)(high). Physical Exam: Alert and oriented female appearing her stated age. Skin in the treatment area is intact with minimal erythema. No moist desquamation noted. No edema. Patient ambulatory without assistance. Imaging: Radiation therapy imaging related to accurate target localization (i.e. KV, MV and CBCT) was reviewed. Appropriate changes, if any, were made to ensure treatment accuracy. Plan: Patient tolerating radiation therapy well with minimal treatment related side effects thus far. Plan to continue prescribed treatment. Signed by: iSd Mar 01/02/2024 2:00:54 PM
--- NOTE | 2024-01-04 15:21 | ONCRAD TMN_ITS ---
Radiation Oncology Weekly Treatment Management Patient: Victor Hugo Soler> MR#: [id number] : 1955> Attending Physician: Sid Mar Date of Service: 01/04/2024 Referring Physician(s) : Jerel rCuz Diagnosis: C79.51 - Secondary malignant neoplasm of bone, Diagnosed 12/20/2023 (Active) C50.411 - Malignant neoplasm of upper-outer quadrant of right female breast, Diagnosed 07/12/2021 (Active) Stage X, T1a, pN1b, G2, HER2 Neg, ER Pos, MN Neg Radiotherapy to date: Course: Bone Met 2023 Treatment Site: T Spine Mets, Ref. ID: GTV, Energy: 15X, Dose/Fx (cGy): 300, #Fx: , Dose Correction (cGy): 0, Total Dose Delivered (cGy): 2,700, Start Date: , 12/25/2023, Elapsed Days: 10 Reason for visit: The patient is being seen today as part of their regularly scheduled weekly on treatment visits to assess for acute toxicities from radiotherapy. Dr. Villareal inquired about the results of the recent PET scan from 01/02/2024 that described a partially calcified and air-filled nodule in the right lung apex measuring 1.7 cm. There were no abnormal physiologic findings on the PET scan including no abnormal radiotracer uptake in the right lung apex lesion. Imaging: Radiation therapy imaging related to accurate target localization (i.e. KV, MV and CBCT) was reviewed. Appropriate changes, if any, were made to ensure treatment accuracy. Plan: I spoke with Dr. Martin by phone and reminded her that her note from the initial evaluation pointed out the lung lesion which was stable at that time. Dr. Villareal has indicated that he is considering a liquid biopsy to determine if there are circulating cancer cells possibly from the patient's previous breast cancer. Dr. Martin indicates that she is comfortable with monitoring and follow-up CT scan in approximately 3 months. The findings were also discussed with the patient today at her treatment time this afternoon. The patient is in agreement with the plan for observation at this time. Signed by: Sid Mar 01/04/2024 3:21:14 PM
--- NOTE | 2024-01-05 11:18 | N.ONRD TS_ITS ---
Radiation Oncology Treatment Summary Patient: Karlene Gay MR#: [id number] : 1955 Age: 68 Sex: Female Dictated by: Sid Mar Date of Service: 01/05/2024 Referring Physician(s) : Jerel Cruz Diagnosis: C79.51 - Secondary malignant neoplasm of bone, Diagnosed 12/20/2023 (Active) C50.411 - Malignant neoplasm of upper-outer quadrant of right female breast, Diagnosed 07/12/2021 (Active) Stage X, T1a, pN1b, G2, HER2 Neg, ER Pos, SC Neg Radiotherapy to Date: Course: Bone Met 2023, Treatment Site: T Spine Mets, Ref. ID: GTV, Energy: 15X, Dose/Fx (cGy): 300, #Fx: 10 / 10, Dose Correction (cGy): 0, Total Dose Delivered (cGy): 3,000, Start Date: 12/25/2023, End Date: 01/05/2024, Elapsed Days: 11 Clinical Summary: The patient tolerated RT well. Hydrocodone/acetaminophen prescription refilled today. Plan: End of treatment today. Continue on the above medication until the skin reaction resolves. Follow up in one month. Signed by: Sid Mar>01/05/2024 11:17:50 AM <<Signature on File>>
== END 2024-01-21 23:59 | disposition home or self-care (01) ==
PROVIDERS: PCP Registered Nurse; Visit Provider Radiology Radiation Oncology
DX: C79.51 Secondary malignant neoplasm of bone (principal); C50.411 Malignant neoplasm of upper-outer quadrant of right female breast; F17.210 Nicotine dependence, cigarettes, uncomplicated; Z17.0 Estrogen receptor positive status [ER+]; Z79.811 Long term (current) use of aromatase inhibitors
CPT/HCPCS: 71260; 77014; 77336; 77387; 77412; 77427; 78815; 81001; 99024; 99214; A9552; Q9967

== ENCOUNTER 2024-03-19 15:08 | Outpatient (CLI) | payer MEDICARE, MEDICAID, SELFPAY ==
--- NOTE | 2024-03-19 15:45 | USCV_ITS ---
Karlene Gay Age: 68 Gender: F : 1955 Exam Date: 03/19/2024 15:20 Ordering Phys: Love Martin MD Technologist: PAT Exam Location: [facility] Indication: PAINFUL LT LEG HISTORY: Painful Lt leg. No trauma. No history of dvt. PROCEDURES: Venous duplex imaging was performed in only the left lower extremity. The following venous structures were evaluated: common femoral vein, profunda vein, proximal portion of the greater saphenous vein, superficial femoral vein, and the popliteal vein. In addition, the posterior tibial and peroneal trunk were evaluated. Serial compression, augmentation maneuvers, and spectral Doppler flow evaluation were performed. FINDINGS: Normal 2-D Doppler and augmentation and compressibility throughout the lower extremity venous structures. Additional imaging through the proximal calf veins also reveals no thrombus. Limited evaluation of the greater saphenous vein is patent with no thrombus. There is a left lower extremity Bakers cyst CONCLUSIONS No evidence of left lower extremity DVT. Left popliteal cyst measuring 2.3 x 0.7cm Lars De Paz MD (Electronically Signed) Final Date: 19 Mar 2024 15:59 S
== END 2024-03-19 15:09 | disposition home or self-care (01) ==
LOC: RAD 15:08
PROVIDERS: PCP Nurse Practitioner Family; Visit Provider Radiology Radiation Oncology
DX: C79.51 Secondary malignant neoplasm of bone (principal); M71.22 Synovial cyst of popliteal space [Baker], left knee
CPT/HCPCS: 93971

== ENCOUNTER 2024-08-20 12:52 | Outpatient (CLI) | payer MEDICARE, MEDICAID, SELFPAY ==
--- NOTE | 2024-08-20 13:00 | MRR_ITS ---
PROCEDURE INFORMATION: Exam: MR Lumbar Spine Without and With Contrast Exam date and time: 08/20/2024 1:17 PM Age: 68 years old Clinical indication: Low back pain; Patient HX: Chronic back pain, bilateral leg pain, scoliosis, HX of breast cancer; Additional info: Breast cancer, back pain TECHNIQUE: Imaging protocol: Magnetic resonance imaging of the lumbar spine without and with contrast. Contrast material: MULTIHANCE; Contrast volume: 20 ml; Contrast route: INTRAVENOUS (IV); COMPARISON: PT PET skull to thigh INIT [id number] 01/02/2024 2:37 PM FINDINGS: Bones/joints: Facet arthropathy can be seen at multiple levels. No fracture or subluxation noted. No enhancing lesions noted. Spinal cord: Visualized cord, conus medullaris and cauda equina are unremarkable without compression. L1-L2: No significant disc bulge or herniation. No severe spinal canal stenosis. No significant neural foraminal narrowing. L2-L3: No significant disc bulge or herniation. No severe spinal canal stenosis. No significant neural foraminal narrowing. L3-L4: No significant disc bulge or herniation. No severe spinal canal stenosis. No significant neural foraminal narrowing. L4-L5: No significant disc bulge or herniation. No severe spinal canal stenosis. No significant neural foraminal narrowing. L5-S1: At the L5-S1 level there is a severe spinal stenosis caused by a prominent concentric disc bulge along with severe bilateral facet arthropathy. Both neural foramina are severely effaced. Soft tissues: Unremarkable. MR/MR lumbar spine wo/w con [id number] IMPRESSION: 1. Severe spinal stenosis at L5-S1 due to bulging disc and facet arthropathy 2. There is no evidence of active neoplastic disease.
--- NOTE | 2024-08-20 13:45 | MRR_ITS ---
PROCEDURE INFORMATION: Exam: MR Thoracic Spine Without and With Contrast Exam date and time: 08/20/2024 1:39 PM Age: 68 years old Clinical indication: Pain in thoracic spine; Patient HX: Chronic back pain, bilateral leg pain, scoliosis, HX of breast cancer; Additional info: Breast cancer; Back pain TECHNIQUE: Imaging protocol: Magnetic resonance imaging of the thoracic spine without and with contrast. Contrast material: MULTIHANCE; Contrast volume: 20 ml; Contrast route: INTRAVENOUS (IV); COMPARISON: MR thoracic spine wo/w [id number] 11/30/2023 11:44 AM FINDINGS: Examination of a assembly cleaner coronal image demonstrates an S shaped scoliotic curvature to the thoracolumbar spine. Examination of the sagittal images demonstrates normal alignment. No subluxations or compression fractures are noted. There is abnormal marrow signal involving T5, T6, T7, T8, T9, T10 and T11 suspicious for postradiation type change. However, there is abnormal STIR signal with abnormal enhancement involving T8, T9, T10, and T11 suspicious for metastatic disease. There is disc space narrowing at T7-8, T8-9, T9-10, T10-11, T11-12.. The cervical cord is normal in signal intensity on all pulse sequences. T1-2: Normal T2-3: Normal T3-4: Normal T4-5: Normal T5-6: Normal T6-7: Normal T7-8: Normal T8-9: There is diffuse disc bulging. There is mild resultant canal narrowing with mild bilateral foraminal narrowing. T9-10: There is mild disc bulging. There is mild resultant canal narrowing . The neural foramina are widely patent. T10-11: There is diffuse disc bulging. There is mild resultant canal narrowing with mild right foraminal narrowing and more moderate left foraminal narrowing. T11-12: There is trace disc bulging. The spinal canal and foramina are widely patent. T12-L1: Normal No abnormal enhancement is otherwise noted. No epidural tumor is appreciated. MR/MR thoracic spine wo/w [id number] IMPRESSION: 1. S shaped scoliotic curvature. 2. Multilevel degenerative disc change with disc bulging at multiple levels. Particulars at each level are given above. 3. Persistent abnormal signal with enhancement involving the T8, T9, T10 and T11 vertebral bodies suspicious for metastatic disease. No definite new lesion is appreciated.
[2024-08-20] MEDS: gadobenate dimeglumine 20 mL vial IV (14:11)
== END 2024-08-20 12:53 | disposition home or self-care (01) ==
LOC: RAD 12:53
PROVIDERS: PCP Nurse Practitioner Family; Visit Provider Internal Medicine Medical Oncology
DX: M51.34 Other intervertebral disc degeneration, thoracic region (principal); M99.62 Osseous and subluxation stenosis of intervertebral foramina of thoracic region; M41.34 Thoracogenic scoliosis, thoracic region; C50.411 Malignant neoplasm of upper-outer quadrant of right female breast
CPT/HCPCS: 72157; 72158; A9577

== ENCOUNTER 2024-08-27 12:59 | Oncology outpatient (recurring) (ONCR) | payer MEDICARE, MEDICAID, SELFPAY ==
--- OUTSIDE RECORDS SUMMARY | 2024-08-06 14:06 | XMS_ITS ---
Author Name Unknown Organization [facility] ALLERGIES AND ADVERSE REACTIONS No information ASSESSMENT No information CHIEF COMPLAINT No information Vital Signs Bpsitting Date Temperature Weight Height Spo2 Respiration Bmi Ti merecorded Pulse 128/82 07/26/20 12:00:0 0 AM 96.9 205,0.00 4,12 94 20 40 09:33 91 null 08/28/20 12:00:0 0 AM null 210,0.00 5,10 null null 30.1 12:33 null 144/70 023 12:00:0 0 AM 98 168,0.00 5,2 99 14 30.7 17:08 54 106/68 023 12:00:0 0 AM 97.9 107,4.00 5,0 100 null 20.6 17:48 63 112/70 023 12:00:0 0 AM 98.9 175,8.00 5,3 99 20 31.6 16:10 82 114/84 08/28/20 12:00:0 0 AM 97.3 153,4.00 5,4 97 null 26.3 16:29 81 OBJECTIVE DATA No information PHYSICAL EXAMINATION No information TREATMENT PLAN No information PROBLEMS No information RESULTS No information REVIEW OF SYSTEMS No information SUBJECTIVE DATA No information MEDICATIONS No information
--- OUTSIDE RECORDS SUMMARY | 2024-08-06 14:06 | XMS_ITS ---
Author Name Unknown Organization Unknown ALLERGIES AND ADVERSE REACTIONS No information ASSESSMENT No information CHIEF COMPLAINT No information Vital Signs Bpstanding Bpsitting Date Temperature Weight Height Spo2 Respirati on Bmi Timerecorded Pulse null 128/82 07/26 00:00 :00 96.9 205,0.0 0 4,12 94 20 40 00:00 91 107/69 null 06/04 00:00 :00 98.7 194,7.0 0 4,12 98 18 38 00:00 95 OBJECTIVE DATA No information PHYSICAL EXAMINATION No information TREATMENT PLAN No information PROBLEMS No information RESULTS No information REVIEW OF SYSTEMS No information SUBJECTIVE DATA No information MEDICATIONS No information
--- NOTE | 2024-08-06 14:16 | PC.NURSE ---
Per Mabel Reveles [employer]-pt to be rescheduled for labs/OV since she has not had MRI yet. Pt informed that someone from from [facility] will notify her when she is rescheduled. Pt voiced understanding/lc
[2024-08-27 13:29] LABS: Basophils # 0.1 10^3/uL (0.0-0.1); Basophils % 0.7 %; Eosinophils # 0.2 10^3/uL (0.0-0.8); Lymphocytes # 1.7 10^3/uL (0.8-4.8); Lymphocytes % 19.9 %; Mean Corpuscular Hemoglobin 29.7 pg (27-33); Mean Corpuscular Volume 92.8 fl (85-98); Mean Platelet Volume 10.4 fL (7.4-10.4); Monocytes # 0.6 10^3/uL (0.2-0.9); Monocytes % 6.5 %; Neutrophils # 5.95 10^3/uL (1.8-7.7); Neutrophils % 70.4 %; Nucleated Red Blood Cells % 0 %; Platelet Count 280 10^3/cmm (157-399); Red Blood Count 4.74 10^6/uL (3.85-5.65); Red Cell Distribution Width 14.3 % (12.1-15.1); White Blood Count 8.45 10^3/uL (3.29-11.43)
[2024-08-27 13:46] LABS: Alanine Aminotransferase 15 U/L (0-33); Alkaline Phosphatase 138 U/L (35-105); Aspartate Amino Transferase 17 U/L (0-32); Blood Urea Nitrogen 18 mg/dL (8-23); Calcium 9.1 mg/dL (8.5-10.5); Carbon Dioxide 26 mmol/L (22-29); Chloride 105 mmol/L (98-107); Creatinine Clr Calc Pharmacy 91.4729; Globulin 2.8 g/dL (1.3-4.6); Glomerular Filtration Rate 55.3 mL/min (90-130); Glucose 150 mg/dL (65-115); Osmolality Calculated 299 mOsm/kg (285-295); Sodium 142 mmol/L (136-145); Total Bilirubin 0.7 mg/dL (0.15-1.2); Total Protein 6.8 g/dL (6.6-8.7)
[2024-08-27 13:53] LABS: Anion Gap 15.6 (5-19); Potassium 4.6 mmol/L (3.5-5.1)
--- NOTE | 2024-09-13 13:30 | PETR_ITS ---
PROCEDURE INFORMATION: Exam: PET/CT Skull Base to Mid-thigh Exam date and time: 09/13/2024 1:54 PM Age: 68 years old Clinical indication: Restaging of breast cancer. 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 Chronic back pain and pain in thoracic spine. Bone scan on 09/12/2023 showed patchy uptake in the lower thoracic spine. Enhancing findings in the lower thoracic spine noted on MRI thoracic spine on 11/30/2023. Radiation to T7-T11 was completed in December 2023. Prior PET-CT on 01/02/2024 with no abnormal uptake. Enhancing findings in the lower thoracic spine persisted after radiation on 08/20/2024. LABS AND CLINICAL REPORTS: Glucose: 86 mg/dl Treatment strategy for malignancy (PET staging): Restaging (PS) TECHNIQUE: Imaging protocol: Following at least four-hour fasting and following the injection of radiopharmaceutical, low dose CT images were obtained. Then, PET images were obtained. Attenuation corrected images were constructed using the CT scan. Fused images of PET and CT were reviewed. The standardized uptake values (SUV) reported below are maximum values within a region of interest, expressed in gm/ml. Exam includes orbital meatal line to mid-thigh. SUV normalization method: BodyWeight Radiopharmaceutical: 11.8 mCi F-18 FDG (Fluorodeoxyglucose), IV. Time of imaging post radiopharmaceutical administration: 47 minutes Injection site: left ac COMPARISON: PT PET skull to thigh INIT [id number] 01/02/2024, MRI thoracic spine 08/20/2024 and 11/30/2023, bone scan 09/12/2023, CT guided radiotherapy 12/20/2023 FINDINGS: Brain: Normal physiologic uptake. Pharynx: No abnormal uptake. Larynx: No abnormal uptake. Lungs, pleura and trachea: No abnormal uptake. Stable 2 x 1.8 cm calcified nodule with small eccentric cavitation compatible with benign finding. No new lung nodules or masses. No pleural effusion. Heart: Unremarkable. There is no cardiomegaly. Coronary artery calcification is present. There is no pericardial effusion. Mediastinal space: No abnormal uptake. See below in lymph nodes . Liver: No abnormal uptake. Maximum uptake is 3.9 SUV. Gallbladder and biliary ducts: No abnormal uptake. No calcified gallstones. Pancreas: No abnormal uptake. Spleen: No abnormal uptake. No splenomegaly. Adrenal glands: No abnormal uptake. Kidneys and ureters: Normal physiologic uptake. Stomach and bowel: No abnormal uptake. Intraperitoneal and retroperitoneal spaces: No abnormal uptake. No ascites. Bladder: Normal physiologic uptake. Reproductive: No abnormal uptake. The uterus is absent post surgically. Two normal ovaries are in place. Vasculature: No abnormal uptake. Lymph nodes: No FDG avid lymphadenopathy in the neck, chest, abdomen, pelvis, and extremities. Stable calcifications within borderline in size upper mediastinal lymph nodes. Skeleton: New mildly increased linear uptake of 5.1 SUV in the left L4-L5 facet joint represents benign inflammatory finding. Decreased uptake in T5-T7 vertebral bodies corresponds to the field of prior radiation. Stable sclerosis in the endplates around T10-11 and T8-9 discs suggestive of benign degenerative finding. Soft tissues: No abnormal uptake in the visualized head, neck, chest, abdomen, pelvis, and extremities. PET/PET skull to thigh SUBS [id number] IMPRESSION: 1. No abnormal radiotracer uptake to suggest malignancy. New slightly increased linear uptake within the left L4-L5 facet joint compatible with benign inflammatory/degenerative finding. 2. New hypormetabolism in T5-T7 vertebral bodies corresponds to the field of prior radiation. 3. Stable non FDG avid calcified cavitary nodule in the right upper lobe representing benign postinflammatory finding. The findings were verbally communicated via telephone conference with Anirudh Foreman at 10:25 AM PNEUMATIC TOOL REPAIRER on 09/16/2024. The findings were acknowledged and understood.
== END 2024-09-21 23:59 | disposition home or self-care (01) ==
LOC: RAD 09-13 12:59 → ONCMED 09-13 12:59
PROVIDERS: PCP Nurse Practitioner Family; Visit Provider Internal Medicine Medical Oncology
DX: C50.411 Malignant neoplasm of upper-outer quadrant of right female breast (principal); M51.369 Other intervertebral disc degeneration, lumbar region without mention of lumbar back pain or lower extremity pain; R91.1 Solitary pulmonary nodule
CPT/HCPCS: 36415; 78815; 80053; 85025; 99214; A9552

== ENCOUNTER 2024-09-24 11:49 | Oncology outpatient (recurring) (ONCR) | payer MEDICARE, MEDICAID, SELFPAY ==
[2024-09-24 12:51] LABS: Basophils % 0.5 %; Eosinophils # 0.2 10^3/uL (0.0-0.8); Eosinophils % 2.2 %; Hematocrit 40.7 % (36-47); Lymphocytes % 22.5 %; Mean Corpuscular HGB Conc 32.2 g/dL (30-55); Mean Corpuscular Hemoglobin 30.3 pg (27-33); Mean Platelet Volume 10.1 fL (7.4-10.4); Monocytes # 0.8 10^3/uL (0.2-0.9); Monocytes % 8.6 %; Neutrophils # 5.77 10^3/uL (1.8-7.7); Neutrophils % 65.7 %; Nucleated Red Blood Cells % 0 %; Platelet Count 285 10^3/cmm (157-399); Red Blood Count 4.33 10^6/uL (3.85-5.65); White Blood Count 8.76 10^3/uL (3.29-11.43)
[2024-09-24 13:21] LABS: Alanine Aminotransferase 17 U/L (0-33); Alkaline Phosphatase 132 U/L (35-105); Anion Gap 10.1 (5-19); Aspartate Amino Transferase 19 U/L (0-32); Blood Urea Nitrogen 21 mg/dL (8-23); Carbon Dioxide 30 mmol/L (22-29); Chloride 103 mmol/L (98-107); Globulin 3.3 g/dL (1.3-4.6); Glomerular Filtration Rate 55.3 mL/min (90-130); Glucose 89 mg/dL (65-115); Osmolality Calculated 288 mOsm/kg (285-295); Potassium 5.1 mmol/L (3.5-5.1); Sodium 138 mmol/L (136-145); Total Bilirubin 0.8 mg/dL (0.15-1.2); Total Protein 7.3 g/dL (6.6-8.7)
== END 2024-10-22 23:59 | disposition home or self-care (01) ==
PROVIDERS: PCP Nurse Practitioner Family; Visit Provider Internal Medicine Medical Oncology
DX: C50.411 Malignant neoplasm of upper-outer quadrant of right female breast (principal); C79.51 Secondary malignant neoplasm of bone; Z79.811 Long term (current) use of aromatase inhibitors; Z79.899 Other long term (current) drug therapy; Z92.3 Personal history of irradiation; Z17.0 Estrogen receptor positive status [ER+]; D72.829 Elevated white blood cell count, unspecified
CPT/HCPCS: 36415; 80053; 85025; 99214

== ENCOUNTER 2025-01-06 09:33 | Oncology outpatient (recurring) (ONCR) | payer MEDICARE, MEDICAID, SELFPAY ==
[2025-01-06 10:11] LABS: Basophils # 0.1 10^3/uL (0.0-0.1); Basophils % 0.6 %; Eosinophils # 0.2 10^3/uL (0.0-0.8); Eosinophils % 2.3 %; Hematocrit 40.3 % (36-47); Lymphocytes # 1.7 10^3/uL (0.8-4.8); Lymphocytes % 20.8 %; Mean Corpuscular Hemoglobin 30.2 pg (27-33); Mean Corpuscular Volume 94.4 fl (85-98); Mean Platelet Volume 10.5 fL (7.4-10.4); Monocytes # 0.6 10^3/uL (0.2-0.9); Monocytes % 7.3 %; Neutrophils # 5.55 10^3/uL (1.8-7.7); Neutrophils % 68.4 %; Nucleated Red Blood Cells % 0 %; Platelet Count 287 10^3/cmm (157-399); Red Blood Count 4.27 10^6/uL (3.85-5.65); Red Cell Distribution Width 13.1 % (12.1-15.1); White Blood Count 8.12 10^3/uL (3.29-11.43)
[2025-01-06 10:42] LABS: Alanine Aminotransferase 12 U/L (0-33); Albumin Level 4.2 g/dL (3.5-5.2); Alkaline Phosphatase 150 U/L (35-105); Aspartate Amino Transferase 13 U/L (0-32); Blood Urea Nitrogen 30 mg/dL (8-23); CA 15-3 6.6 U/mL (0-25); Calcium 9.7 mg/dL (8.5-10.5); Carbon Dioxide 28 mmol/L (22-29); Chloride 99 mmol/L (98-107); Globulin 2.8 g/dL (1.3-4.6); Glomerular Filtration Rate 71.3 mL/min (90-130); Glucose 128 mg/dL (65-115); Osmolality Calculated 296 mOsm/kg (285-295); Sodium 139 mmol/L (136-145); Total Bilirubin 0.6 mg/dL (0.15-1.2)
== END 2025-01-20 23:59 | disposition home or self-care (01) ==
PROVIDERS: PCP Nurse Practitioner Family; Visit Provider Internal Medicine Medical Oncology
DX: C50.411 Malignant neoplasm of upper-outer quadrant of right female breast (principal); Z17.0 Estrogen receptor positive status [ER+]; C79.51 Secondary malignant neoplasm of bone; F17.210 Nicotine dependence, cigarettes, uncomplicated; Z92.3 Personal history of irradiation; Z79.811 Long term (current) use of aromatase inhibitors
CPT/HCPCS: 36415; 80053; 85025; 86300; 99214

== ENCOUNTER 2025-01-21 12:59 | Outpatient (CLI) | payer MEDICARE, MEDICAID, SELFPAY ==
--- NOTE | 2025-01-21 13:30 | XR_ITS ---
WS: [id number] SCREENING DEXA SCAN [employer] [place] CLINICAL INFORMATION: post menopausal and high risk medication use COMPARISON: None. FINDINGS: The L1-L4 bone mineral density measures 1.238 g/cm2. This corresponds to a T score score of 0.5 and Z score of 1.0. Left femoral neck bone mineral density measures 1.077 g/cm2. This corresponds to a T score of 0.6 and Z score of 1.1. Right femoral neck bone mineral density measures 1.133 g/cm2. This corresponds to a T score 1.0of and Z score of 1.5. Mean femoral neck bone mineral density measures 1.105 g/cm2. This corresponds to a T score of 0.8 and Z score of 1.3. XR/XR DEXA axial skeleton* [id number] IMPRESSION: Normal bone mineralization lumbar spine and femoral necks. Patient's FRAX calculated 10 year probability for major osteoporotic fracture i s 6.1% and osteoporotic hip fracture is 0.5%.
== END 2025-01-21 13:00 | disposition home or self-care (01) ==
PROVIDERS: PCP Nurse Practitioner Family; Visit Provider Internal Medicine Medical Oncology
DX: Z78.0 Asymptomatic menopausal state (principal); C50.411 Malignant neoplasm of upper-outer quadrant of right female breast; C79.51 Secondary malignant neoplasm of bone
CPT/HCPCS: 77080

== ENCOUNTER 2025-02-21 09:03 | Outpatient (CLI) | payer MEDICARE, MEDICAID, SELFPAY ==
--- NOTE | 2025-02-21 09:00 | PETR_ITS ---
PROCEDURE INFORMATION: Exam: PET/CT Skull Base to Mid-thigh Exam date and time: 02/21/2025 9:47 AM Age: 69 years old Clinical indication: Restaging of breast cancer; Malignant neoplasm of upper outer quadrant of right breast initially diagnosed in 2020. Status post radiation to T7-T11 completed in December 2023. LABS AND CLINICAL REPORTS: Glucose: 129 mg/dl Treatment strategy for malignancy (PET staging): Restaging (PS) TECHNIQUE: Imaging protocol: Following at least four-hour fasting and following the injection of radiopharmaceutical, low dose CT images were obtained. Then, PET images were obtained. Attenuation corrected images were constructed using the CT scan. Fused images of PET and CT were reviewed. The standardized uptake values (SUV) reported below are maximum values within a region of interest, expressed in gm/ml. Exam includes orbital meatal line to mid-thigh. SUV normalization method: BodyWeight Radiopharmaceutical: 11.1 mCi F-18 FDG (Fluorodeoxyglucose), IV. Time of imaging post radiopharmaceutical administration: 46 minutes Injection site: left ac COMPARISON: PT PET skull to thigh SUBS [id number] 09/13/2024 1:54 PM FINDINGS: Brain: Normal physiologic uptake. Pharynx: No abnormal uptake. Larynx: No abnormal uptake. Lungs, pleura and trachea: No abnormal uptake. Stable 1.8 cm centrally cavitary partially calcified non FDG avid nodule posteriorly in the right upper lobe represents benign postinflammatory finding. No pleural effusion. Heart: No abnormal uptake. Coronary artery calcification is present. There is no cardiomegaly. There is no pericardial effusion. Mediastinal space: No abnormal uptake. Liver: No abnormal uptake. Maximum uptake is 3.9 SUV. Gallbladder and biliary ducts: No abnormal uptake. Pancreas: No abnormal uptake. Spleen: No abnormal uptake. No splenomegaly. Adrenal glands: No abnormal uptake. No nodules. Kidneys and ureters: Normal physiologic uptake. No hydronephrosis. Stomach and bowel: Increased uptake in multiple loops of small bowel with no corresponding CT abnormality is benign. Intraperitoneal and retroperitoneal spaces: No abnormal uptake. No ascites. Stable peripherally calcified focus of fat necrosis in the right lower quadrant (series 202, image 216). Bladder: Normal physiologic uptake. Reproductive: No abnormal uptake. The uterus is absent post surgically. The ovaries are normal in size. Vasculature: No abnormal uptake. Lymph nodes: No FDG avid lymphadenopathy in the neck, chest, abdomen, pelvis, and extremities. Skeleton: No abnormal increased uptake in the visualized axial and appendicular skeleton. Stable hypo metabolism in the midthoracic spine. Stable benign degenerative sclerosis in the endplates in the 2 lower thoracic levels. Soft tissues: No abnormal uptake in the visualized head, neck, chest, abdomen, pelvis, and extremities. PET/PET skull to thigh SUBS [id number] IMPRESSION: The findings are stable since prior exam on 09/13/2024 with no abnormal radiotracer uptake concerning for malignancy. Stable non FDG avid findings in the thoracic spine.
== END 2025-02-21 09:04 | disposition home or self-care (01) ==
PROVIDERS: PCP Nurse Practitioner Family; Visit Provider Internal Medicine Medical Oncology
DX: C50.411 Malignant neoplasm of upper-outer quadrant of right female breast (principal); C79.51 Secondary malignant neoplasm of bone; R91.1 Solitary pulmonary nodule; I25.10 Atherosclerotic heart disease of native coronary artery without angina pectoris; R93.3 Abnormal findings on diagnostic imaging of other parts of digestive tract; K65.4 Sclerosing mesenteritis; Z98.890 Other specified postprocedural states; R93.7 Abnormal findings on diagnostic imaging of other parts of musculoskeletal system; M51.34 Other intervertebral disc degeneration, thoracic region
CPT/HCPCS: 78815; A9552

== ENCOUNTER 2025-03-03 10:49 | Oncology outpatient (recurring) (ONCR) | payer MEDICARE, MEDICAID, SELFPAY ==
[2025-03-03 11:34] LABS: Basophils # 0.1 10^3/uL (0.0-0.1); Basophils % 0.6 %; Eosinophils # 0.2 10^3/uL (0.0-0.8); Eosinophils % 1.7 %; Hematocrit 39.9 % (36-47); Lymphocytes # 1.7 10^3/uL (0.8-4.8); Lymphocytes % 18.3 %; Mean Corpuscular HGB Conc 31.6 g/dL (30-55); Mean Corpuscular Hemoglobin 29.4 pg (27-33); Mean Platelet Volume 10.8 fL (7.4-10.4); Monocytes # 0.6 10^3/uL (0.2-0.9); Monocytes % 6.9 %; Neutrophils # 6.69 10^3/uL (1.8-7.7); Neutrophils % 71.6 %; Nucleated Red Blood Cells % 0 %; Platelet Count 281 10^3/cmm (157-399); Red Blood Count 4.29 10^6/uL (3.85-5.65); Red Cell Distribution Width 13.6 % (12.1-15.1); White Blood Count 9.34 10^3/uL (3.29-11.43)
[2025-03-03 12:00] LABS: Alanine Aminotransferase 23 U/L (0-33); Albumin Level 4.1 g/dL (3.5-5.2); Alkaline Phosphatase 154 U/L (35-105); Anion Gap 17.8 (5-19); Aspartate Amino Transferase 17 U/L (0-32); Blood Urea Nitrogen 29 mg/dL (8-23); CA 15-3 6.5 U/mL (0-25); Calcium 9.5 mg/dL (8.5-10.5); Carbon Dioxide 22 mmol/L (22-29); Chloride 105 mmol/L (98-107); Creatinine Clr Calc Pharmacy 73.3448; Globulin 3.3 g/dL (1.3-4.6); Glomerular Filtration Rate 71.3 mL/min (90-130); Glucose 182 mg/dL (65-115); Osmolality Calculated 300 mOsm/kg (285-295); Potassium 4.8 mmol/L (3.5-5.1); Sodium 140 mmol/L (136-145); Total Bilirubin 0.5 mg/dL (0.15-1.2); Total Protein 7.4 g/dL (6.6-8.7)
== END 2025-03-22 23:59 | disposition home or self-care (01) ==
PROVIDERS: Internal Medicine Medical Oncology; PCP Nurse Practitioner Family; Visit Provider Internal Medicine
DX: C50.411 Malignant neoplasm of upper-outer quadrant of right female breast (principal); C79.51 Secondary malignant neoplasm of bone; Z17.0 Estrogen receptor positive status [ER+]; F17.210 Nicotine dependence, cigarettes, uncomplicated; Z92.3 Personal history of irradiation; Z79.811 Long term (current) use of aromatase inhibitors; Z79.899 Other long term (current) drug therapy; D72.829 Elevated white blood cell count, unspecified
CPT/HCPCS: 36415; 80053; 85025; 86300; 99213

== ENCOUNTER → 2025-04-01 13:32 | Outpatient (BNVA) | payer MEDICARE, MEDICAID, SELFPAY | PROVIDERS: PCP Nurse Practitioner Family; Referring Provider Nurse Practitioner Family; Visit Provider Specialist | DX: G56.03 Carpal tunnel syndrome, bilateral upper limbs (principal); R20.0 Anesthesia of skin; M79.643 Pain in unspecified hand | CPT/HCPCS: 95911 ==

== ENCOUNTER 2025-05-05 12:40 | Oncology outpatient (recurring) (ONCR) | payer MEDICARE, MEDICAID, SELFPAY ==
[2025-05-05 13:15] LABS: Hematocrit 39.0 % (36-47); Hemoglobin 12.60 g/dL (11.27-16.99); Mean Corpuscular HGB Conc 32.3 g/dL (30-55); Mean Corpuscular Hemoglobin 29.4 pg (27-33); Mean Corpuscular Volume 91.1 fl (85-98); Nucleated Red Blood Cells % 0 %; Platelet Count 285 10^3/cmm (157-399); Red Blood Count 4.28 10^6/uL (3.85-5.65); White Blood Count 13.37 10^3/uL (3.29-11.43)
[2025-05-05 13:36] LABS: Alanine Aminotransferase 24 U/L (0-33); Albumin Level 4.1 g/dL (3.5-5.2); Alkaline Phosphatase 140 U/L (35-105); Anion Gap 19.5 (5-19); Aspartate Amino Transferase 15 U/L (0-32); Blood Urea Nitrogen 29 mg/dL (8-23); Calcium 10.0 mg/dL (8.5-10.5); Carbon Dioxide 24 mmol/L (22-29); Chloride 101 mmol/L (98-107); Creatinine Clr Calc Pharmacy 34.5152; Globulin 3.4 g/dL (1.3-4.6); Glucose 142 mg/dL (65-115); Osmolality Calculated 296 mOsm/kg (285-295); Potassium 5.5 mmol/L (3.5-5.1); Sodium 139 mmol/L (136-145); Total Protein 7.5 g/dL (6.6-8.7)
== END 2025-05-22 23:59 | disposition home or self-care (01) ==
PROVIDERS: PCP Nurse Practitioner Family; Visit Provider Internal Medicine Medical Oncology
DX: C50.411 Malignant neoplasm of upper-outer quadrant of right female breast (principal); Z17.0 Estrogen receptor positive status [ER+]; G56.03 Carpal tunnel syndrome, bilateral upper limbs; C79.51 Secondary malignant neoplasm of bone; F17.210 Nicotine dependence, cigarettes, uncomplicated; I95.9 Hypotension, unspecified; Z92.3 Personal history of irradiation; Z79.811 Long term (current) use of aromatase inhibitors
CPT/HCPCS: 36415; 80053; 85025; 99205; 99214

== ENCOUNTER 2025-08-20 10:15 | Oncology outpatient (recurring) (ONCR) | payer MEDICARE, MEDICAID, SELFPAY ==
[2025-08-04 12:22] LABS: Hematocrit 40.1 % (36-47); Hemoglobin 12.70 g/dL (11.27-16.99); Mean Corpuscular HGB Conc 31.7 g/dL (30-55); Mean Corpuscular Hemoglobin 29.4 pg (27-33); Mean Corpuscular Volume 92.8 fl (85-98); Nucleated Red Blood Cells % 0 %; Platelet Count 303 10^3/cmm (157-399); Red Blood Count 4.32 10^6/uL (3.85-5.65); White Blood Count 11.29 10^3/uL (3.29-11.43)
[2025-08-04 12:42] LABS: Alanine Aminotransferase 23 U/L (0-33); Albumin Level 4.2 g/dL (3.5-5.2); Alkaline Phosphatase 130 U/L (35-105); Anion Gap 16.7 (5-19); Aspartate Amino Transferase 20 U/L (0-32); Blood Urea Nitrogen 19 mg/dL (8-23); Calcium 10.1 mg/dL (8.5-10.5); Carbon Dioxide 25 mmol/L (22-29); Chloride 101 mmol/L (98-107); Creatinine Clr Calc Pharmacy 53.6220; Globulin 3.3 g/dL (1.3-4.6); Glucose 149 mg/dL (65-115); Osmolality Calculated 291 mOsm/kg (285-295); Potassium 4.7 mmol/L (3.5-5.1); Sodium 138 mmol/L (136-145); Total Protein 7.5 g/dL (6.6-8.7)
--- NOTE | 2025-08-20 10:15 | MM_ITS ---
WS: [id number] DIAGNOSTIC BILATERAL DIGITAL BREAST TOMOSYNTHESIS MAMMOGRAPHY WITH CAD HISTORY: surveillance, history of RIGHT breast cancer. COMPARISON: 04/14/2023, 04/11/2022 TECHNIQUE: Bilateral craniocaudad, mediolateral oblique, and mediolateral views are submitted with tomosynthesis and SM. Computer aided detection utilized. Breast composition: There are scattered areas of fibroglandular density. Post lumpectomy site in the upper outer quadrant RIGHT breast. Mild soft tissue distortion is stable. No recurrent mass. No suspicious grouping of calcifications within either breast. Benign bilateral arterial calcifications. MM/MM diag BI tomosynthesis [id number] IMPRESSION: BI-RADS: 2 - Benign. FOLLOW UP: 1 Year Follow-up
== END 2025-08-22 23:59 | disposition home or self-care (01) ==
LOC: RAD 08-21 → ONCMED 08-21 09:35
PROVIDERS: PCP Nurse Practitioner Family; Visit Provider Internal Medicine Medical Oncology
DX: C50.411 Malignant neoplasm of upper-outer quadrant of right female breast; R92.323 Mammographic fibroglandular density, bilateral breasts; Z98.890 Other specified postprocedural states; M79.89 Other specified soft tissue disorders; R92.1 Mammographic calcification found on diagnostic imaging of breast; Z53.9 Procedure and treatment not carried out, unspecified reason
CPT/HCPCS: 36415; 77062; 80053; 85025; 99214; G0279